=== PATIENT | male | born 1955 | race Caucasian/White ===

== ENCOUNTER 2020-02-13 13:10 | Emergency (ER) | payer OTHER ==
[~2020-02-13] VITALS: Ht 175.3 cm; Wt 94.8 kg
[2020-02-13 13:44] LABS: BASOPHILS ABSOLUTE AUTO 0.06 K/mm3 (0.00-0.23); BASOPHILS PERCENT AUTO 1 % (0-2); EOSINOPHILS PERCENT AUTO 4 % (0-6); Hematocrit 41.7 % (37.0-53.0); IMMATURE GRAN ABSOLUTE AUTO 0.02 K/mm3 (0.00-0.10); IMMATURE GRAN PERCENT AUTO 0 % (0-1); LYMPHOCYTES ABSOLUTE AUTO 0.96 K/mm3 (0.84-5.20); LYMPHOCYTES PERCENT AUTO 18 % (21-46); MONOCYTES ABSOLUTE AUTO 0.58 K/mm3 (0.16-1.47); MONOCYTES PERCENT AUTO 11 % (4-13); Mean Corpuscular Volume 97 fL (80-100); Mean Platelet Volume 10.7 fL (9.1-12.4); NEUTROPHILS ABSOLUTE AUTO 3.67 K/mm3 (1.96-9.15); NEUTROPHILS PERCENT AUTO 67 % (41-73); Platelet Count 154 K/mm3 (150-400); RDW Coefficient Variation 12.5 % (11.7-14.2); Red Blood Cell Count 4.28 M/mm3 (4.30-5.90); White Blood Cell Count 5.49 K/mm3 (4.00-11.30)
[2020-02-13 14:01] LABS: Alanine Aminotransfer (ALT/SGP 73 U/L (12-78); Albumin, Blood 2.9 g/dL (3.4-5.0); Albumin/Globulin Ratio 0.6 (0.8-1.8); Alk Phos 195 U/L (50-136); Anion Gap 9 mmol/L (6-16); Aspartate Aminotrans (AST/SGOT 133 U/L (12-37); Bilirubin, Total 1.8 mg/dL (0.1-1.0); Blood Urea Nitrogen 6 mg/dL (8-24); Bun/Creatinine Ratio 10.5 (12.0-20.0); CO2, Blood 24 mmol/L (21-32); Calcium, Blood 8.4 mg/dL (8.5-10.1); Chloride, Blood 105 mmol/L (98-108); Creatinine, Blood 0.57 mg/dL (0.60-1.20); Ethanol (Alcohol), Blood, Med 34 mg/dL; Globulin, Blood 4.9 g/dL (2.2-4.0); Glomerular Filtration Rate >60 (60-); Glucose, Blood 169 mg/dL (70-99); Potassium, Blood 3.6 mmol/L (3.5-5.5); Sodium, Blood 138 mmol/L (136-145); Total Protein, Blood 7.8 g/dL (6.4-8.2)
[2020-02-13] MEDS ORDERED: ACET500 PO (14:32)
[2020-02-13] MEDS ORDERED: IBUP800 PO (14:33)
[2020-02-13] MEDS ORDERED: CHLO25 PO (15:13)
== END 2020-02-13 15:27 | disposition home or self-care (01) ==
LOC: ER 13:10
PROVIDERS: Emergency Medicine
DX: F10.239 Alcohol dependence with withdrawal, unspecified (principal); M54.2 Cervicalgia; Z87.81 Personal history of (healed) traumatic fracture; I10 Essential (primary) hypertension; F17.220 Nicotine dependence, chewing tobacco, uncomplicated; W01.10XA Fall on same level from slipping, tripping and stumbling with subsequent striking against unspecified object, initial encounter
CPT/HCPCS: 72125; 80053; 83690; 85025; 96374; 99284-25; G0480; J2060

== ENCOUNTER 2021-05-04 12:06 | Inpatient (IN) | payer OTHER ==
[~2021-05-04] VITALS: Ht 175.3 cm; Wt 87.1 kg
[~2021-05-04 12:06] MED LIST: ACET500 PO; AMLO10 PO; B-1100 M1 PO; CHLO25 PO; CLON.1 PO; FAMO20 PO; GABA600 PO; IBUP800 PO; METO25ER PO; Nicoderm Cq1 EAC1 TOP; Seroquel Xr50 MG
[2021-05-04 12:39] LABS: BASOPHILS ABSOLUTE AUTO 0.03 K/mm3 (0.00-0.23); BASOPHILS PERCENT AUTO 0 % (0-2); EOSINOPHILS ABSOLUTE AUTO 0.07 K/mm3 (0.00-0.68); EOSINOPHILS PERCENT AUTO 1 % (0-6); Hematocrit 34.9 % (37.0-53.0); Hemoglobin 11.5 g/dL (13.5-17.5); IMMATURE GRAN ABSOLUTE AUTO 0.03 K/mm3 (0.00-0.10); IMMATURE GRAN PERCENT AUTO 0 % (0-1); LYMPHOCYTES ABSOLUTE AUTO 0.71 K/mm3 (0.84-5.20); LYMPHOCYTES PERCENT AUTO 9 % (21-46); MONOCYTES ABSOLUTE AUTO 0.87 K/mm3 (0.16-1.47); MONOCYTES PERCENT AUTO 11 % (4-13); Mean Corpuscular HGB 29.1 pg (26.0-34.0); Mean Corpuscular Volume 88 fL (80-100); Mean Platelet Volume 11.1 fL (9.1-12.4); NEUTROPHILS ABSOLUTE AUTO 6.16 K/mm3 (1.96-9.15); NEUTROPHILS PERCENT AUTO 78 % (41-73); Platelet Count 131 K/mm3 (150-400); RDW Coefficient Variation 12.6 % (11.7-14.2); RDW Standard Deviation 40.7 fL (35.1-46.3); Red Blood Cell Count 3.95 M/mm3 (4.30-5.90); White Blood Cell Count 7.87 K/mm3 (4.00-11.30)
[2021-05-04 12:48] LABS: Alanine Aminotransfer (ALT/SGP 26 U/L (12-78); Albumin, Blood 2.5 g/dL (3.4-5.0); Albumin/Globulin Ratio 0.6 (0.8-1.8); Alk Phos 133 U/L (50-136); Anion Gap 19 mmol/L (6-16); Aspartate Aminotrans (AST/SGOT 33 U/L (12-37); Bilirubin, Total 1.4 mg/dL (0.1-1.0); Blood Urea Nitrogen 90 mg/dL (8-24); Bun/Creatinine Ratio 13.6 (12.0-20.0); CO2, Blood 15 mmol/L (21-32); Calcium, Blood 8.7 mg/dL (8.5-10.1); Chloride, Blood 99 mmol/L (98-108); Creatinine, Blood 6.64 mg/dL (0.60-1.20); Globulin, Blood 4.5 g/dL (2.2-4.0); Glomerular Filtration Rate 8 (60-); Glucose, Blood 84 mg/dL (70-99); Potassium, Blood 3.8 mmol/L (3.5-5.5); Sodium, Blood 133 mmol/L (136-145); Troponin I <0.015 ng/mL (0.000-0.040)
[2021-05-04 15:16] LABS: Percent Saturation 7.3 % (20.0-50.0)
[2021-05-05 05:24] LABS: BASOPHILS ABSOLUTE AUTO 0.02 K/mm3 (0.00-0.23); BASOPHILS PERCENT AUTO 0 % (0-2); EOSINOPHILS ABSOLUTE AUTO 0.09 K/mm3 (0.00-0.68); EOSINOPHILS PERCENT AUTO 2 % (0-6); Hematocrit 32.1 % (37.0-53.0); Hemoglobin 11.1 g/dL (13.5-17.5); IMMATURE GRAN ABSOLUTE AUTO 0.01 K/mm3 (0.00-0.10); IMMATURE GRAN PERCENT AUTO 0 % (0-1); LYMPHOCYTES ABSOLUTE AUTO 0.78 K/mm3 (0.84-5.20); LYMPHOCYTES PERCENT AUTO 13 % (21-46); MONOCYTES PERCENT AUTO 12 % (4-13); Mean Corpuscular HGB 29.4 pg (26.0-34.0); Mean Corpuscular HGB Conc 34.6 g/dL (31.5-36.5); Mean Corpuscular Volume 85 fL (80-100); Mean Platelet Volume 10.6 fL (9.1-12.4); NEUTROPHILS ABSOLUTE AUTO 4.23 K/mm3 (1.96-9.15); NEUTROPHILS PERCENT AUTO 73 % (41-73); Platelet Count 95 K/mm3 (150-400); RDW Coefficient Variation 12.6 % (11.7-14.2); RDW Standard Deviation 38.6 fL (35.1-46.3); Red Blood Cell Count 3.77 M/mm3 (4.30-5.90); White Blood Cell Count 5.83 K/mm3 (4.00-11.30)
[2021-05-05 05:40] LABS: International Normalized Ratio 1.18; Prothrombin Time Results 12.3 Sec (9.7-11.5)
[2021-05-05 06:38] LABS: Albumin, Blood 2.3 g/dL (3.4-5.0); Albumin/Globulin Ratio 0.6 (0.8-1.8); Bilirubin, Total 1.2 mg/dL (0.1-1.0); Bun/Creatinine Ratio 18.4 (12.0-20.0); Calcium, Blood 8.3 mg/dL (8.5-10.1); Creatinine, Blood 4.83 mg/dL (0.60-1.20); Potassium, Blood 3.2 mmol/L (3.5-5.5); Total Protein, Blood 6.3 g/dL (6.4-8.2)
--- NOTE | 2021-05-05 07:00 | NUR ---
PAULETTE WAS ASSESSED UPON HIS ARRIVAL ON THE FLOOR, HE STATED THAT HE "DID'NT WANT TO STAY" . HE TOOK HIS MEDS, WAS COOPERATIVE, DENIED TAKING SOME OF THE MEDICATIONS ON HIS HOME MED LIST. HE SLEPT THROUGHOUT THE NIGHT.
--- NOTE | 2021-05-05 07:14 | NUR ---
ASSUMED CARE OF PT- BEDSIDE REPORT COMPLETED WITH NIGHT RN. PTIN BED SLEEPING SONOROUSLY. LUNG SOUNDS CLEAR IN THE BASES UPPER LOBES SOUND A LITTLE WHEEZY, POSSIBLY R/T SNORING. ALVAREZ CATH IN PLACE PATENT AND DRAINING. PLACED CLAMP TO COLLECT UA THAT IS ORDERED. WILL COLLECT ONCE URINE ACCUMULATES. PT APPEARS TO BE COMFORTABLE AT THIS TIME. SMALL SCRAPE OR LACERATION ABOVE THE RIGHT EYE. PER REPORT THIS IS RELATED TO THE PT MORE RECENT FALL AT HOME. APPARENTLY THE PT HAS HAD FREQUENT FALLS AT HOME AND HAS BRUISES T/O. WILL CTM AND COLLECT UA WHEN APPROPRIATE.
[2021-05-05 09:39] LABS: Source, Urine Catheter
[2021-05-05 09:42] LABS: Appearance, Urine Hazy (Clear); Bilirubin, Urine Neg (Neg); Blood, Urine 5+ (Neg); Color, Urine Yellow (P-Yellow); Glucose Qualitative, Urine Neg (Neg); Ketones, Urine Neg (Neg); Leukocyte Esterase, Urine Neg (Neg); Nitrite, Urine Neg (Neg); Protein, Urine 2+ (Neg); Specific Gravity, Urine 1.015 (1.003-1.022); Urobilinogen, Urine NORM (Normal)
[2021-05-05 10:00] LABS: Amorphous Light (0-Heavy); Bacteria Few /hpf; Mucus Light (0-Heavy); Squamous Epithelial Cells Few /hpf (Few); White Blood Cells, Urine Not Seen /hpf (0-5)
--- NOTE | 2021-05-05 17:13 | NUR ---
Pt fatigued and aggitated. Daughter at bedside to discuss his care. She is tearfull and exhauted and repetative. We reviewed his protential trajectory of care needs again we also reviewed a [facility] Copy in [place] and on chart. copy given to daughter. after review completed polst that stated no CPR litied treatment no ventilator. Would go to ICU for medications, will accept airvo and bipap. Pt stated his s agreement but was tentative and overwhelmed. Suggested they talk more befor we make and changes. Daughters hope [facility] They understand watch and wait and see if kidneys recover.
--- NOTE | 2021-05-05 17:30 | NUR ---
SHIFT SUMMARY- SPOKE TO SPEECH THERAPY ABOUT PT SMALL OCCASSIONAL COUGH. CONCERN FOR A POSSIBLE SWALLOW ISSUE, SPOKE TO DR RANDOLPH AND RECIEVED A SPEECH THERAPY SWALLOW EVAL ORDER. THE COUGH WAS FAR MORE EVIDENT WHEN THE PT WAS USING A LARGER CUP WITH A BIGGER STRAW. SWITCHED TO A SMALLER CUP WITH A SMALLER STRAW, ENCOURAGED PT TO TAKE SMALL SIPS. PLACED MEDS IN APPLESAUCE ONE AT A TIME THIS EVENING AND PT SWALLOWED THEM WELL. STAFF WERE ABLE TO GET THE PT INTO THE SHOWER THIS AFTERNOON AND WASHED HIS HAIR. PT HAS A ALVAREZ CATH THAT WAS PLACED IN THE ED FOR RETENTION. PER REPORT FROM NIGHT RN 3300 OUT WHEN IT WAS PLACED. PT HAS HAD A HIGH OUTPUT, GREATER THAN 2L THIS SHIFT. VITALS REMAIN STABLE. NEW IV PLACED IN THE RIGHT FORE ARM THE OTHER KEPT OCCLUDING WITH THE CONTINUIOUS INFUSION OF THE THIAMINE IV FLUIDS. UA COLLECTED AND SENT TO THE LAB EARLY IN THE SHIFT. DR RANDOLPH AND PALLIATIVE CARE RN BRANDEN MURPHY SPOKE TO THE PT DAUGHTER RAYMOND AT LENGTH TODAY. RAYMOND WAS ASKED TO UPDATE THE REST OF THE PT FAMILY AFTER SHE SPOKE TO THE DOCTOR, SHE HAD THE DOCTOR REPEAT IT ALL FOR THE SISTER GITA. BOTH ARE UP TO DATE ON THE PT MEDICAL CONDITION IT IS NOW. PT IS CURRENTLY SITTING UP IN BED, CALL LIGHT IN REACH, NO S&S OF DITRESS NOTED AT THIS TIME WILL CTM AND PASS ON TO NIGHT RN IN BEDSIDE REPORT.
--- NOTE | 2021-05-06 04:15 | NUR ---
SHIFT SUMMARY AOX2-SELF, HOSPITAL, FOLLOWING DIRECTIONS. UNAWARE DATE STATES 2015 & 2025 WHEN ASKED. UNAWARE TOWN STATES [place]. PT SLIGHTLY FORGETFUL & CONFUSED. PLEASENT & COOPERATIVE. VSS. TELE NSR. REPORTS CHRONIC 9/10 PAIN IN NECK & BACK, MEDICATED 1X c TYLENOL & PT RESTED WELL T/O NIGHT. DENIES N/V OR SOB. HAS OCC NONPRODUCTIVE COUGH, SPEECH EVAL PLANNED FOR TODAY. MULT ABRASIONS, SCRAPES & BRUSING T/O BODY. +3 PITTING EDEMA BLE, ELEVATED ON PILLOWS. ALVAREZ PATENT & DRAINING. CALL LIGHT & BED ALARM IN PLACE. [facility] DAY NURSE ASSUMES CARE.
[2021-05-06 05:32] LABS: BASOPHILS PERCENT AUTO 0 % (0-2); EOSINOPHILS PERCENT AUTO 0 % (0-6); Hematocrit 31.1 % (37.0-53.0); Hemoglobin 10.7 g/dL (13.5-17.5); IMMATURE GRAN PERCENT AUTO 0 % (0-1); LYMPHOCYTES ABSOLUTE AUTO 0.28 K/mm3 (0.84-5.20); LYMPHOCYTES PERCENT AUTO 10 % (21-46); MONOCYTES ABSOLUTE AUTO 0.18 K/mm3 (0.16-1.47); MONOCYTES PERCENT AUTO 6 % (4-13); Mean Corpuscular HGB 29.4 pg (26.0-34.0); Mean Corpuscular HGB Conc 34.4 g/dL (31.5-36.5); Mean Corpuscular Volume 85 fL (80-100); Mean Platelet Volume 11.6 fL (9.1-12.4); NEUTROPHILS ABSOLUTE AUTO 2.35 K/mm3 (1.96-9.15); NEUTROPHILS PERCENT AUTO 84 % (41-73); Platelet Count 88 K/mm3 (150-400); RDW Coefficient Variation 12.5 % (11.7-14.2); RDW Standard Deviation 38.9 fL (35.1-46.3); Red Blood Cell Count 3.64 M/mm3 (4.30-5.90); White Blood Cell Count 2.81 K/mm3 (4.00-11.30)
[2021-05-06 06:03] LABS: Albumin/Globulin Ratio 0.5 (0.8-1.8); Bilirubin, Total 0.7 mg/dL (0.1-1.0); Bun/Creatinine Ratio 31.9 (12.0-20.0); C-REACTIVE PROTEIN, EXT RANGE 5.73 mg/dL (0.000-0.300); Calcium, Blood 8.2 mg/dL (8.5-10.1); Creatinine, Blood 2.16 mg/dL (0.60-1.20); Globulin, Blood 4.3 g/dL (2.2-4.0); Magnesium, Blood 1.7 mg/dL (1.6-2.4); Potassium, Blood 3.4 mmol/L (3.5-5.5); Thyroid Stimulating Hormone 1.01 uIU/mL (0.360-4.800); Total Protein, Blood 6.3 g/dL (6.4-8.2)
[2021-05-06 06:08] LABS: Phosphorus, Blood 2.5 mg/dL (2.5-4.9)
--- NOTE | 2021-05-06 09:26 | NUR ---
PT TO IMAGING AND BACK VIA BED, TOLERATED WELL
--- NOTE | 2021-05-06 11:35 | NUR ---
This creative writer present at the bedside for interview with [employer] for assistance with caregivers. Rian is alone in his room. He gave verbal permission for this creative writer to be present. This creative writer spoke with Lakeshia, pt's dtr, earlier today who is unable to be here for the interview due to illness. aKyla from [facility] conducted this phone interview. Rian has questions re: the estate claims portion. Phone numbers written down for Rian to contact the Estates Administration Unit (EAU) to ask questions to determine if he is willing to agree to move forward or to withdraw his application for assistance. Kayla states a brochure and contact information for the EAU will also be mailed out to his [address] address. Contact numbers for EAU are: [phone] or . Per Kayla, the next steps for this application process are: 1) Assest verification (which Kayla will start today) 2) EAU brochure to be mailed to pt's mailing address (Kayla will do today) 3) Rian and family to contact EAU to find out the answers to their questions. 4) Once EAU has been contacted by pt/family and a decision has been made to proceed with application or to withdraw the application, pt or family will need to contact Joanna Castellanos at [facility] (pt's CM) [phone] option 8 to let Joanna know what their decision is. Rian gave permission for this creative writer to update his dtr, Lakeshia, re: today's phone call with Kayla. Called Lakeshia who is sick this morning and she requested that this creative writer call back later this afternoon to update her. Bedside nursing updated.
--- NOTE | 2021-05-06 18:34 | NUR ---
PT A/O X2, MILDLY CONFUSED AND FORGETFUL, BUT PLEASANT AND COOPERATIVE WITH CARE. SPEECH EVAL DONE TODAY, MEDS TO BE GIVEN IN APPLESAUCE AND LIQUIDS TO BE HONEY THICK. ALVAREZ FOR RETENTION IN PLACE, PATENT AND DRAINING. TO IMAGING FOR MRI THIS AM, TOLERATED WELL. NO ACUTE CHANGES NOTED THIS SHIFT, WILL CONTINUE TO MONITOR AND REPORT TO ONCOMING RN
[2021-05-07 04:50] LABS: BASOPHILS PERCENT AUTO 0 % (0-2); EOSINOPHILS PERCENT AUTO 0 % (0-6); Hematocrit 30.9 % (37.0-53.0); Hemoglobin 10.5 g/dL (13.5-17.5); IMMATURE GRAN ABSOLUTE AUTO 0.02 K/mm3 (0.00-0.10); IMMATURE GRAN PERCENT AUTO 1 % (0-1); LYMPHOCYTES ABSOLUTE AUTO 0.58 K/mm3 (0.84-5.20); LYMPHOCYTES PERCENT AUTO 14 % (21-46); MONOCYTES ABSOLUTE AUTO 0.41 K/mm3 (0.16-1.47); MONOCYTES PERCENT AUTO 10 % (4-13); Mean Corpuscular HGB 29.2 pg (26.0-34.0); Mean Corpuscular Volume 86 fL (80-100); Mean Platelet Volume 11.3 fL (9.1-12.4); NEUTROPHILS ABSOLUTE AUTO 3.08 K/mm3 (1.96-9.15); NEUTROPHILS PERCENT AUTO 75 % (41-73); Platelet Count 89 K/mm3 (150-400); RDW Coefficient Variation 12.7 % (11.7-14.2); RDW Standard Deviation 39.9 fL (35.1-46.3); White Blood Cell Count 4.09 K/mm3 (4.00-11.30)
[2021-05-07 05:07] LABS: Albumin, Blood 1.9 g/dL (3.4-5.0); Albumin/Globulin Ratio 0.4 (0.8-1.8); Bilirubin, Total 0.5 mg/dL (0.1-1.0); Bun/Creatinine Ratio 35.9 (12.0-20.0); Calcium, Blood 8.1 mg/dL (8.5-10.1); Creatinine, Blood 1.28 mg/dL (0.60-1.20); Globulin, Blood 4.3 g/dL (2.2-4.0); Magnesium, Blood 1.4 mg/dL (1.6-2.4); Phosphorus, Blood 1.7 mg/dL (2.5-4.9); Potassium, Blood 3.4 mmol/L (3.5-5.5); Total Protein, Blood 6.2 g/dL (6.4-8.2)
--- NOTE | 2021-05-07 05:14 | NUR ---
PAULETTE HAD UNENVENTFUL NIGHT, HR DID COMPLAINED OF HEADACHE AND NECK PAIN FOR THAT APPEARED TO HAVE BEEN RELIEVED WITH TYLENOL PER EMAR. HE STILL TAKES HIS MEDS IN APPLESAUCE. HE IS ALERT AND ORIENTED OCCASIONAL FORGETFULNESS. MORNING SYSTOLIC BP WAS HIGH (167). CONTINUE TO MONITOR
--- NOTE | 2021-05-07 18:31 | NUR ---
PT IS SLOWING GAINING STRENGTH, ABLE TO STAND AND SUPPORT HIS WEIGHT WITH ASSISTANCE, PLEASANT AND COOPERATIVE WITH CARE. NO ACUTE CHANGES NOTED THIS SHIFT, WILL CONTINUE TO MONITOR AND REPORT TO ONCOMING RN,
--- NOTE | 2021-05-08 04:02 | NUR ---
PAULETTE'S VITALS REMAINED STABLE OVERNIGHT. HE SPILLED WATER ON HIMSELF WHILE TRYING TO DRINK SOME WATER APPARENTLY. hE REMOVED HIS GOWN AND IN DOING SO HE ACCIDENTALLY PULLED OUT HIS LEFT AC PIV. HIS FLUID WERE SWITHCED TO THE RIGHT FOREARM PIV.
[2021-05-08 05:44] LABS: BASOPHILS PERCENT AUTO 0 % (0-2); EOSINOPHILS PERCENT AUTO 0 % (0-6); Hematocrit 31.9 % (37.0-53.0); Hemoglobin 10.7 g/dL (13.5-17.5); IMMATURE GRAN ABSOLUTE AUTO 0.02 K/mm3 (0.00-0.10); IMMATURE GRAN PERCENT AUTO 0 % (0-1); LYMPHOCYTES ABSOLUTE AUTO 0.77 K/mm3 (0.84-5.20); LYMPHOCYTES PERCENT AUTO 17 % (21-46); MONOCYTES ABSOLUTE AUTO 0.48 K/mm3 (0.16-1.47); MONOCYTES PERCENT AUTO 10 % (4-13); Mean Corpuscular HGB 29.2 pg (26.0-34.0); Mean Corpuscular HGB Conc 33.5 g/dL (31.5-36.5); Mean Corpuscular Volume 87 fL (80-100); Mean Platelet Volume 11.6 fL (9.1-12.4); NEUTROPHILS PERCENT AUTO 73 % (41-73); Platelet Count 100 K/mm3 (150-400); RDW Coefficient Variation 12.9 % (11.7-14.2); RDW Standard Deviation 40.8 fL (35.1-46.3); Red Blood Cell Count 3.66 M/mm3 (4.30-5.90); White Blood Cell Count 4.67 K/mm3 (4.00-11.30)
[2021-05-08 06:09] LABS: Anion Gap 8 mmol/L (6-16); Blood Urea Nitrogen 31 mg/dL (8-24); Bun/Creatinine Ratio 32.4 (12.0-20.0); CO2, Blood 23 mmol/L (21-32); Calcium, Blood 7.8 mg/dL (8.5-10.1); Chloride, Blood 110 mmol/L (98-108); Creatinine, Blood 0.96 mg/dL (0.60-1.20); Glomerular Filtration Rate >60 (60-); Glucose, Blood 155 mg/dL (70-99); Magnesium, Blood 1.3 mg/dL (1.6-2.4); Phosphorus, Blood 1.8 mg/dL (2.5-4.9); Potassium, Blood 3.4 mmol/L (3.5-5.5); Sodium, Blood 141 mmol/L (136-145)
--- NOTE | 2021-05-08 17:20 | NUR ---
SHIFT SUMMARY PATIENT ALERT, ORIENTED X2 THIS SHIFT. PATIENT IS CALM AND COOPERATIVE WITH CARE. VSS THIS SHIFT. PATIENT REMAINS ON ROOM AIR. PATIENT CONTINUES TO RECEIVE IV FLUIDS. PATIENT UP TO BSC ONCE THIS AFTERNOON. ALVAREZ REMOVED AROUND MID SHIFT. PATIENT YET TO VOID. PATIENT CURRENTLY SITTING UP IN BED WATCHING TELEVISION.
[2021-05-09 04:54] LABS: BASOPHILS PERCENT AUTO 0 % (0-2); EOSINOPHILS ABSOLUTE AUTO 0.01 K/mm3 (0.00-0.68); EOSINOPHILS PERCENT AUTO 0 % (0-6); Hematocrit 31.7 % (37.0-53.0); Hemoglobin 10.5 g/dL (13.5-17.5); IMMATURE GRAN ABSOLUTE AUTO 0.01 K/mm3 (0.00-0.10); IMMATURE GRAN PERCENT AUTO 0 % (0-1); LYMPHOCYTES ABSOLUTE AUTO 0.87 K/mm3 (0.84-5.20); LYMPHOCYTES PERCENT AUTO 17 % (21-46); MONOCYTES PERCENT AUTO 10 % (4-13); Mean Corpuscular HGB 29.3 pg (26.0-34.0); Mean Corpuscular HGB Conc 33.1 g/dL (31.5-36.5); Mean Corpuscular Volume 89 fL (80-100); Mean Platelet Volume 11.1 fL (9.1-12.4); NEUTROPHILS ABSOLUTE AUTO 3.68 K/mm3 (1.96-9.15); NEUTROPHILS PERCENT AUTO 73 % (41-73); Platelet Count 99 K/mm3 (150-400); RDW Coefficient Variation 13.2 % (11.7-14.2); Red Blood Cell Count 3.58 M/mm3 (4.30-5.90); White Blood Cell Count 5.07 K/mm3 (4.00-11.30)
[2021-05-09 05:12] LABS: Alanine Aminotransfer (ALT/SGP 106 U/L (12-78); Albumin, Blood 1.8 g/dL (3.4-5.0); Albumin/Globulin Ratio 0.5 (0.8-1.8); Alk Phos 164 U/L (50-136); Anion Gap 6 mmol/L (6-16); Aspartate Aminotrans (AST/SGOT 100 U/L (12-37); Bilirubin, Total 0.4 mg/dL (0.1-1.0); Blood Urea Nitrogen 25 mg/dL (8-24); Bun/Creatinine Ratio 25.4 (12.0-20.0); CO2, Blood 23 mmol/L (21-32); Calcium, Blood 7.7 mg/dL (8.5-10.1); Chloride, Blood 114 mmol/L (98-108); Creatinine, Blood 0.98 mg/dL (0.60-1.20); Globulin, Blood 3.9 g/dL (2.2-4.0); Glomerular Filtration Rate >60 (60-); Glucose, Blood 222 mg/dL (70-99); Magnesium, Blood 1.4 mg/dL (1.6-2.4); Phosphorus, Blood 1.8 mg/dL (2.5-4.9); Potassium, Blood 3.7 mmol/L (3.5-5.5); Sodium, Blood 143 mmol/L (136-145); Total Protein, Blood 5.7 g/dL (6.4-8.2)
--- NOTE | 2021-05-09 06:16 | NUR ---
PAULETTE REMAINED STABLE THROUGHOUT THE PSYCHIATRIC REGISTERED NURSE. HIS BLOOD SUGAR WAS WNL AND K+ LEVEL FROM YESTERDAY MORNING LAB IS TRENDING DOWN.
--- NOTE | 2021-05-09 06:30 | NUR ---
PAULETTE WAS PHYSIOLOGICALLY STABLE THROUGHOUT THE NIGHT, SPOKE TO HIS DAUGHTER WHO REPORTED PERIODS OF CONFUSION SURING THE CONVERSATION. THE DAUGHTER ORDERED HIM PIZZA WHICH HE ATE WITH ENJOYMENT. THE DAUGHTER PLANS TO TALK TO THE DAOCTOR ABOUT HIS EMAR TODAY
--- NOTE | 2021-05-09 19:24 | NUR ---
Alert and oriented x1 , huston cath in place draining clear yellow urine. BP was elevated , hydralazine 10 mg iv was given and please recheck. Had shower today. continue to monitor.
--- NOTE | 2021-05-10 04:42 | NUR ---
SHIFT SUMMARY PT UP IN RECLINER FOR FIRST HALF OF SHIFT, DECLINING TO GET IN TO THE BED UNTIL LATER IN THE NIGHT. PT TRANSFERED TO BED WITH 2 PERSON ASSIST AND FWW. SLOW MOVING, EXTREMETIES STIFF. SCATTERED BRUISING AND ABRASION TO FOREHEAD NOTED. PT COMPLAINED OF HEADACHE THIS EVENING. TYLENOL GIVEN WITH GOOD EFFECT. ALVAREZ CATHETER PATENT AND DRAINING. EDEMA 1-2+ TO BLE'S. VITAL SIGNS STABLE. NO ACUTE CHANGES THIS EVENING.
[2021-05-10 04:45] LABS: BASOPHILS PERCENT AUTO 0 % (0-2); EOSINOPHILS ABSOLUTE AUTO 0.03 K/mm3 (0.00-0.68); EOSINOPHILS PERCENT AUTO 1 % (0-6); Hematocrit 33.1 % (37.0-53.0); Hemoglobin 10.8 g/dL (13.5-17.5); IMMATURE GRAN ABSOLUTE AUTO 0.04 K/mm3 (0.00-0.10); IMMATURE GRAN PERCENT AUTO 1 % (0-1); LYMPHOCYTES ABSOLUTE AUTO 0.96 K/mm3 (0.84-5.20); LYMPHOCYTES PERCENT AUTO 17 % (21-46); MONOCYTES ABSOLUTE AUTO 0.58 K/mm3 (0.16-1.47); MONOCYTES PERCENT AUTO 10 % (4-13); Mean Corpuscular HGB 29.2 pg (26.0-34.0); Mean Corpuscular HGB Conc 32.6 g/dL (31.5-36.5); Mean Corpuscular Volume 90 fL (80-100); Mean Platelet Volume 11.3 fL (9.1-12.4); NEUTROPHILS PERCENT AUTO 72 % (41-73); Platelet Count 101 K/mm3 (150-400); RDW Coefficient Variation 13.2 % (11.7-14.2); RDW Standard Deviation 43.8 fL (35.1-46.3); White Blood Cell Count 5.71 K/mm3 (4.00-11.30)
[2021-05-10 05:41] LABS: Alanine Aminotransfer (ALT/SGP 122 U/L (12-78); Albumin, Blood 1.9 g/dL (3.4-5.0); Albumin/Globulin Ratio 0.5 (0.8-1.8); Alk Phos 192 U/L (50-136); Anion Gap 7 mmol/L (6-16); Aspartate Aminotrans (AST/SGOT 86 U/L (12-37); Bilirubin, Total 0.5 mg/dL (0.1-1.0); Blood Urea Nitrogen 24 mg/dL (8-24); Bun/Creatinine Ratio 30.9 (12.0-20.0); CO2, Blood 24 mmol/L (21-32); Calcium, Blood 7.5 mg/dL (8.5-10.1); Chloride, Blood 111 mmol/L (98-108); Creatinine, Blood 0.78 mg/dL (0.60-1.20); Globulin, Blood 3.6 g/dL (2.2-4.0); Glomerular Filtration Rate >60 (60-); Glucose, Blood 183 mg/dL (70-99); Magnesium, Blood 1.4 mg/dL (1.6-2.4); Phosphorus, Blood 2.3 mg/dL (2.5-4.9); Potassium, Blood 3.6 mmol/L (3.5-5.5); Sodium, Blood 142 mmol/L (136-145); Total Protein, Blood 5.5 g/dL (6.4-8.2)
--- NOTE | 2021-05-10 17:59 | NUR ---
SHIFT SUMMARY. PATIENT IN BED EATING DINNER. SPENT MOST OF DAY UP IN CHAIR AFTER WORKING WITH PT. PATIENT ADVANCED TO REGULAR DIET WITH THIN LIQUIDS, NO STRAW. TOLERATING WELL AND SWALLOWING PILLS WHOLE WITH WATER. D/C'D ALVAREZ CATHETER AT 1040. PATIENT UNABLE TO VOID, BLADDER SCAN SHOWED 309ML. REINSERTED ALVAREZ CATHETER AT 1530. VITAL SIGNS STABLE. WILL CONTINUE TO MONITOR.
--- NOTE | 2021-05-11 04:20 | NUR ---
CURB WORKER SUMMARY PT HAD A FAIR SHIFT WITH NO COMPLAINTS OVERNIGHT. HE IS ON ALVAREZ THAT WAS REPLACED BY THE DAY SHIFT RN. WILL CONTINUE TO MONITOR PT.
[2021-05-11 04:49] LABS: BASOPHILS PERCENT AUTO 0 % (0-2); EOSINOPHILS ABSOLUTE AUTO 0.01 K/mm3 (0.00-0.68); EOSINOPHILS PERCENT AUTO 0 % (0-6); Hematocrit 36.6 % (37.0-53.0); IMMATURE GRAN ABSOLUTE AUTO 0.04 K/mm3 (0.00-0.10); IMMATURE GRAN PERCENT AUTO 0 % (0-1); LYMPHOCYTES ABSOLUTE AUTO 1.12 K/mm3 (0.84-5.20); LYMPHOCYTES PERCENT AUTO 11 % (21-46); MONOCYTES ABSOLUTE AUTO 0.86 K/mm3 (0.16-1.47); MONOCYTES PERCENT AUTO 9 % (4-13); Mean Corpuscular HGB 29.4 pg (26.0-34.0); Mean Corpuscular HGB Conc 32.8 g/dL (31.5-36.5); Mean Corpuscular Volume 90 fL (80-100); Mean Platelet Volume 11.5 fL (9.1-12.4); NEUTROPHILS ABSOLUTE AUTO 7.98 K/mm3 (1.96-9.15); NEUTROPHILS PERCENT AUTO 80 % (41-73); Platelet Count 115 K/mm3 (150-400); RDW Coefficient Variation 13.4 % (11.7-14.2); RDW Standard Deviation 44.3 fL (35.1-46.3); Red Blood Cell Count 4.08 M/mm3 (4.30-5.90); White Blood Cell Count 10.01 K/mm3 (4.00-11.30)
[2021-05-11 05:03] LABS: International Normalized Ratio 1.15
[2021-05-11 06:04] LABS: Alanine Aminotransfer (ALT/SGP 111 U/L (12-78); Albumin/Globulin Ratio 0.5 (0.8-1.8); Alk Phos 187 U/L (50-136); Anion Gap 9 mmol/L (6-16); Aspartate Aminotrans (AST/SGOT 55 U/L (12-37); Bilirubin, Total 0.5 mg/dL (0.1-1.0); Blood Urea Nitrogen 24 mg/dL (8-24); Bun/Creatinine Ratio 29.2 (12.0-20.0); CO2, Blood 23 mmol/L (21-32); Calcium, Blood 7.9 mg/dL (8.5-10.1); Chloride, Blood 109 mmol/L (98-108); Creatinine, Blood 0.82 mg/dL (0.60-1.20); Globulin, Blood 3.9 g/dL (2.2-4.0); Glomerular Filtration Rate >60 (60-); Glucose, Blood 173 mg/dL (70-99); Magnesium, Blood 1.5 mg/dL (1.6-2.4); Phosphorus, Blood 3.1 mg/dL (2.5-4.9); Potassium, Blood 3.4 mmol/L (3.5-5.5); Sodium, Blood 141 mmol/L (136-145); Total Protein, Blood 5.9 g/dL (6.4-8.2)
[2021-05-11] MEDS ORDERED: ALLO100 PO (08:55)
[2021-05-11] MEDS ORDERED: Acerola C500 MG PO (08:55)
[2021-05-11] MEDS ORDERED: CALCIUM CARBON500 M1 PO (08:57)
[2021-05-11] MEDS ORDERED: CATAPRES0.2 M1 PO (08:58)
[2021-05-11] MEDS ORDERED: FERSU300 PO (08:59)
[2021-05-11] MEDS ORDERED: HYDR10 PO (08:59)
[2021-05-11] MEDS ORDERED: MAGNESIUM OXID500 MG PO (09:00)
[2021-05-11] MEDS ORDERED: MELATONIN5 M1 PO (09:00)
[2021-05-11] MEDS ORDERED: Nicoderm Cq1 EAC1 TOP (09:01)
[2021-05-11] MEDS ORDERED: METO25ER PO (09:01)
[2021-05-11] MEDS ORDERED: ONDA4ODT MM (09:02)
[2021-05-11] MEDS ORDERED: K-Phos Origina500 MG PO (09:02)
[2021-05-11] MEDS ORDERED: PRED20 PO (09:02)
[2021-05-11] MEDS ORDERED: LACT PO (09:03)
[2021-05-11] MEDS ORDERED: Seroquel Xr50 MG PO (09:03)
--- NOTE | 2021-05-11 18:33 | NUR ---
SHIFT SUMMARY UP TO CHAIR THIS MORNING AND AGAIN THIS AFTERNOON. ENCOURAGED TO KEEP LE'S ELEVATED DUE TO EDEMA. FLAT AFFECT. DAUGHTER IN TO SEE PT THIS EVENING. POSSIBILITY OF TRANSFERRING TO [facility] TOMORROW FOR REHAB AND TO SEE A UROLOGIST.
[2021-05-12 05:29] LABS: Prostate Specific Antigen 0.478 ng/mL (0.000-4.000)
--- NOTE | 2021-05-12 06:44 | NUR ---
RECORDS MANAGEMENT ASSOCIATE SUMMARY PATIENT HAD A FAIR SHIFT, HE IS STILL HAVING DIARRHEA, GOT AN ORDER FOR IMMODIUM AND SAME WAS ADMINISTERED. NO OTHER COMPLAINTS LODGED. HIS VS WERE STABLE.
--- NOTE | 2021-05-12 18:23 | NUR ---
SHIFT SUMMARY PT UP TO CHAIR WITH P.T. TODAY AND HAS REMAINED IN CHAIR SINCE LUNCH. FEET ELEVATED WITH PILLOWS TO AID IN SWELLING. DAUGHTER AT BEDSIDE THIS EVENING. PT IS MORE VERBAL AND INTERACTIVE TODAY THAN YESTERDAY. REPORTS SOB IMPROVED FROM YESTERDAY WELL.
--- NOTE | 2021-05-13 07:12 | NUR ---
NAval with acute kidney injury alcoholic cirrhosis hep c coralue to have improvement. Up with 1 assist to chair or BSC. Denies acute unmet needs. HGas huston cath for urinary obstruction retention. able to communicate has plans to go to [facility] for continued recovery
--- NOTE | 2021-05-13 16:41 | NUR ---
DAY SHIFT SUMMARY PLEASANT 66 YR OLD MALE. ABLE TO AMBULATE USING WALKER WITH ONE ASSIST WITH GAIT BELT. ABLE TO AMBULATE AROUND WITH ROOM WITH FROZEN FOOD DEPARTMENT MANAGER PICKER AND PACKER, ABLE TO AMBULATE IN HALLWAY WITH PT. ALVAREZ PATENT AND DRAINING BY GRAVITY. PT INCONTINENT OF URINE AND AT TIMES ALSO BOWEL, OTHER TIMES ABLE TO MAKE IT TO BSC WITH ONE ASSIST WITH WALKER AND GAIT BELT. MEDS WHOLE IN PUDDING. CALL LIGHT WITHIN REACH OF PT.
--- NOTE | 2021-05-14 04:53 | NUR ---
PAULETTE HAD HIS MEDS IN APPLE SAUCE AFTER HIS DAUGHTER LEFT. HIS SBP WAS 177 SO HE WAS MEDICATED PER EMAR. HIS VITALS WERE STABLE THIS MORNING. HE SLEPT MOST OF THE NIGHT
[2021-05-14 05:22] LABS: BASOPHILS ABSOLUTE AUTO 0.01 K/mm3 (0.00-0.23); BASOPHILS PERCENT AUTO 0 % (0-2); EOSINOPHILS ABSOLUTE AUTO 0.02 K/mm3 (0.00-0.68); EOSINOPHILS PERCENT AUTO 0 % (0-6); Hematocrit 35.6 % (37.0-53.0); Hemoglobin 11.7 g/dL (13.5-17.5); IMMATURE GRAN ABSOLUTE AUTO 0.04 K/mm3 (0.00-0.10); IMMATURE GRAN PERCENT AUTO 1 % (0-1); LYMPHOCYTES ABSOLUTE AUTO 1.12 K/mm3 (0.84-5.20); LYMPHOCYTES PERCENT AUTO 13 % (21-46); MONOCYTES ABSOLUTE AUTO 0.96 K/mm3 (0.16-1.47); MONOCYTES PERCENT AUTO 11 % (4-13); Mean Corpuscular HGB 29.5 pg (26.0-34.0); Mean Corpuscular HGB Conc 32.9 g/dL (31.5-36.5); Mean Corpuscular Volume 90 fL (80-100); Mean Platelet Volume 11.5 fL (9.1-12.4); NEUTROPHILS PERCENT AUTO 75 % (41-73); Platelet Count 149 K/mm3 (150-400); RDW Coefficient Variation 13.7 % (11.7-14.2); RDW Standard Deviation 45.1 fL (35.1-46.3); Red Blood Cell Count 3.96 M/mm3 (4.30-5.90); White Blood Cell Count 8.65 K/mm3 (4.00-11.30)
[2021-05-14 06:34] LABS: Albumin, Blood 2.1 g/dL (3.4-5.0); Anion Gap 8 mmol/L (6-16); Blood Urea Nitrogen 27 mg/dL (8-24); Bun/Creatinine Ratio 35.2 (12.0-20.0); CO2, Blood 27 mmol/L (21-32); Calcium, Blood 8.3 mg/dL (8.5-10.1); Chloride, Blood 107 mmol/L (98-108); Creatinine, Blood 0.77 mg/dL (0.60-1.20); Glomerular Filtration Rate >60 (60-); Glucose, Blood 176 mg/dL (70-99); Magnesium, Blood 1.6 mg/dL (1.6-2.4); Phosphorus, Blood 3.4 mg/dL (2.5-4.9); Potassium, Blood 3.6 mmol/L (3.5-5.5); Sodium, Blood 142 mmol/L (136-145)
--- NOTE | 2021-05-14 16:50 | NUR ---
DAY SHIFT SUMMARY PLEASANT 66 YR OLD MALE. ALVAREZ PRESENT, PATENT, AND DRAINING BY GRAVITY. URINE ROMMEL IN COLOR. PT HAS BEEN WORKING WITH PT TO AMBULATE AROUND HALLWAY WITH A FRONT WHEEL WALKER AND GAIT BELT. DAUGHTER CAME TO VISIT AT BEDSIDE THIS AFTERNOON. PT'S SPIRITS SEEMED TO BE HIGHER TODAY VS YESTERDAY. CALL LIGHT WITHIN REACH OF PT.
--- NOTE | 2021-05-15 05:20 | NUR ---
PAULETTE REMAINED STABLE ALL NIGHT, WAS ADMINISTERED HIS MEDS, HAD A RESTFUL NIGHT OF SLEEP. STILL WAITING ON PLAN FOR TRANSFER TO [facility]
--- NOTE | 2021-05-15 18:09 | NUR ---
SHIFT SUMMARY PATIENT DENIES PAIN, NAUSEA, AND SHORTNESS OF BREATH. PATIENT IS A 1 PERSON ASSIST TO THE BEDSIDE COMMODE. ALVAREZ IS PATENT AND DRAINING TO GRAVITY. PATIENT LIKES TO HAVE HIS MEDICATIONS WHOLE IN PUDDING. PATIENT IS EATING AND DRINKING WELL. PATIENT IS PLEASANT AND COOPERATIVE WITH CARE.
--- NOTE | 2021-05-16 04:49 | NUR ---
PAULETTE'S CONDITION REMAINED STABLE LAST NIGHT. HE HAD A BM ON THE BED BEFORE ASKING RTO BE TRANSFERRED TO THE BEDSIDE COMMODE. HE WAS ATTENDED TO AND CLEANED THEN WENT BACK TO BED
--- NOTE | 2021-05-16 18:29 | NUR ---
SHIFT SUMMARY PATIENT DENIES PAIN, NAUSEA, AND SHORTNESS OF BREATH. PATIENT [place] 1 [place] [facility] [place] TRANSFERRED TO A SHOWER CHAIR AND TOOK A SHOWER TODAY. EDUCATED PATIENT ABOUT CATH CARE. PATIENT SOME TROUBLE WITH DEXTERITY IN HANDS. WILL CONTINUE TO WORK WITH HIM. PATIENT IS EATING AND DRINKING WELL. PATIENT IS PLEASANT AND COOPERATIVE WITH CARE.
--- NOTE | 2021-05-17 03:30 | NUR ---
SHIFT SUMMARY PAULETTE ADMITTED FOR ACUTE KIDNEY INJURY R/T RENAL FAILURE FROM OBSTRUCTION. ALVAREZ IN PLACE AND DRAINING TO GRAVITY. PT IS 1 PERSON SBA TO BSC. HX OF FALLING PRIOR TO ARRIVAL. IV IN RIGHT FOREARM, FLUSHES WELL. ROOM AIR. A&O X3-4. PLAN IS PLACEMENT IN SNF FOR REHAB OR POSSIBLE PT WITH HOME HEALTH, DAY SHIFT NURSES ARE WORKING WITH PT ON EDUCATION REGARDING CATHETER CARE. BED IN LOWEST POSITION, CALL LIGHT WITHIN REACH. VSS, NO ACUTE CHANGES.
[2021-05-17 04:55] LABS: Hematocrit 35.8 % (37.0-53.0); Hemoglobin 11.7 g/dL (13.5-17.5)
[2021-05-17 05:31] LABS: Anion Gap 10 mmol/L (6-16); Blood Urea Nitrogen 31 mg/dL (8-24); Bun/Creatinine Ratio 38.7 (12.0-20.0); CO2, Blood 31 mmol/L (21-32); Calcium, Blood 8.1 mg/dL (8.5-10.1); Chloride, Blood 101 mmol/L (98-108); Glomerular Filtration Rate >60 (60-); Glucose, Blood 246 mg/dL (70-99); Phosphorus, Blood 4.1 mg/dL (2.5-4.9); Potassium, Blood 3.2 mmol/L (3.5-5.5); Sodium, Blood 142 mmol/L (136-145)
--- NOTE | 2021-05-17 17:17 | NUR ---
SHIFT SUMMARY PATIENT DENIES PAIN, NAUSEA, AND SHORTNESS OF BREATH. PATIENT IS A 1 PERSON ASSIST TO THE CHAIR OR BSC. ALVAREZ IS PATENT AND DRAINING. PT WORKED WITH PATIENT TODAY. PATIENT DECLINED TO WORK WITH OT DUE TO BEING TIRED FROM PT. CATH CARE EDUCATION DONE WITH PATIENT. HE IS IMPROVING WITH HIS ABILITY TO PERFORM PROPER CARE. PATIENT IS EATING AND DRINKING WELL. UPDATED PATIENTS DAUGHTERS TODAY. PATIENT IS PLEASANT AND COOPERATIVE [facility] CARE.
--- NOTE | 2021-05-18 04:35 | NUR ---
PATIENT WAS ALERT AND ORIENTED X3, PAIN COMPLAINED ON PAIN IN HIS RIGHT LEG AND GIVEN PAIN MEDS. PATIENT IS BEDREST AND WAS IN ENCOURAGED TO USE A BED HAYS OR URINARY BUT PATIENT TRIED TO GET ASSISTS TO GET OUT OF BED TO USE THE REST ROOM OR BEDSIDE COMMODE. PATIENT DENIES SOB
--- NOTE | 2021-05-18 04:43 | NUR ---
PATIENT WAS ALERT AND ORIENTED X3, PT ON ROOM AIR, ALVAREZ IN PLACE. PT PREFERS TAKING MEDS WITH CHOCOLATE PUDDING. PT DENIES PAIN OR SOB. STABLE VITAL SIGNS, NO ACUTE CHANES.
[2021-05-18 06:04] LABS: Anion Gap 10 mmol/L (6-16); Blood Urea Nitrogen 30 mg/dL (8-24); Bun/Creatinine Ratio 37.1 (12.0-20.0); CO2, Blood 34 mmol/L (21-32); Chloride, Blood 97 mmol/L (98-108); Creatinine, Blood 0.81 mg/dL (0.60-1.20); Glomerular Filtration Rate >60 (60-); Glucose, Blood 231 mg/dL (70-99); Magnesium, Blood 1.5 mg/dL (1.6-2.4); Sodium, Blood 141 mmol/L (136-145)
[2021-05-18] MEDS ORDERED: POTA10T PO (11:56)
[2021-05-18] MEDS ORDERED: TAMS.4ER PO (11:57)
[2021-05-18] MEDS ORDERED: FURO40 PO (11:57)
[2021-05-18] MEDS ORDERED: SPIR50 PO (11:58)
[2021-05-18 12:38] LABS: Influenza A, PCR NEGATIVE (NEGATIVE); Influenza B, PCR NEGATIVE (NEGATIVE); Resp Syncytial Virus, PCR NEGATIVE (NEGATIVE); SARS-Cov-2 (COVID-19) PCR, MMC NEGATIVE (NEGATIVE)
--- NOTE | 2021-05-18 14:48 | NUR ---
DISCHARGE NOTE PT IV REMOVED BY THIS RN PER DOCUMENTATION. PAPERWORK SENT WITH [facility]IA TROUBLE LINEMAN. PT ALVAREZ CATHETER PRESENT UPON DC. PT IN HOSPITAL GOWN UPON DC AND BELONGINGS GATHERED FROM ROOM. PT ASSISTED INTO WHEELCHAIR BY THIS RN AND BREAKER BOSS. PT LEFT BUILDING VIA TRANSPORT.
== END 2021-05-18 14:31 | DRG 683 ==
LOC: ER 12:06 → MEDS 15:10 → ERHOLD 15:10 → MEDS 20:03
PROVIDERS: Emergency Medicine; Family Medicine; Internal Medicine; Nurse Practitioner Acute Care; ADMIT Hospitalist
DX: N17.9 Acute kidney failure, unspecified (principal); E87.2 Acidosis; N13.8 Other obstructive and reflux uropathy; F10.230 Alcohol dependence with withdrawal, uncomplicated; E46 Unspecified protein-calorie malnutrition; D61.818 Other pancytopenia; R29.6 Repeated falls; E87.5 Hyperkalemia; D69.6 Thrombocytopenia, unspecified; Z20.822 Contact with and (suspected) exposure to COVID-19; N40.1 Benign prostatic hyperplasia with lower urinary tract symptoms; M10.9 Gout, unspecified; K21.9 Gastro-esophageal reflux disease without esophagitis; E87.6 Hypokalemia; E83.42 Hypomagnesemia; G89.29 Other chronic pain; M54.2 Cervicalgia; K74.60 Unspecified cirrhosis of liver; I10 Essential (primary) hypertension; B18.2 Chronic viral hepatitis C; F17.220 Nicotine dependence, chewing tobacco, uncomplicated; Z85.038 Personal history of other malignant neoplasm of large intestine; Z90.49 Acquired absence of other specified parts of digestive tract; Z91.14 Patient's other noncompliance with medication regimen; Z68.29 Body mass index [BMI] 29.0-29.9, adult
CPT/HCPCS: 0241U; 36415; 51702; 70450; 71046; 76770; 80048; 80053; 80069; 81001; 82550; 82607; 82728; 82746; 83540; 83550; 83735; 83880; 84100; 84145; 84153; 84443; 84484; 84550; 85014; 85018; 85025; 85610; 86140; 87086; 92526; 92610; 93005; 93010; 93970; 94760; 96365; 96366; 97110; 97116; 97162; 97166; 97530; 97535; 99285-25; A9270; J0360; J1644; J1940; J3411; J3475; J7030; J7042; J7060; J7512

== ENCOUNTER → 2021-11-11 | Outpatient (CLI) | payer MEDICARE, OTHER ==
[~2021-11-11] MED LIST changes: +ALLO100 PO; +ASPERFLEX1 EACH TOP; +Acerola C500 MG PO; +BANATROL PLUS1 EAC1 PO; +CALCIUM CARBON500 M1 PO; +CATAPRES0.1 MG PO; +FERSU300 PO; +FURO40 PO; +HYDR10 PO; +K-Phos Origina500 MG PO; +LACT PO; +LIDO700A20 TOP; +LOPE2C PO; +MAGNESIUM OXID500 MG PO; +MELATONIN5 M1 PO; +METF500 PO; +ONDA4ODT MM; +POTA10T PO; +PRED20 PO; +SPIR50 PO; +Seroquel Xr50 MG PO; +TAMS.4ER PO; +TRAZ50 PO; +VISBIOME 112.51 EACH PO
[2021-11-11 21:20] LABS: Hematocrit 39.3 % (37.0-53.0); Hemoglobin 12.9 g/dL (13.5-17.5); Mean Corpuscular HGB 29.1 pg (26.0-34.0); Mean Corpuscular HGB Conc 32.8 g/dL (31.5-36.5); Mean Corpuscular Volume 89 fL (80-100); Mean Platelet Volume 10.8 fL (9.1-12.4); Platelet Count 190 K/mm3 (150-400); RDW Coefficient Variation 13.7 % (11.7-14.2); RDW Standard Deviation 44.2 fL (35.1-46.3); Red Blood Cell Count 4.44 M/mm3 (4.30-5.90); White Blood Cell Count 9.16 K/mm3 (4.00-11.30)
[2021-11-11 21:32] LABS: Bun/Creatinine Ratio 21.9 (12.0-20.0); Calcium, Blood 9.4 mg/dL (8.5-10.1); Creatinine, Blood 0.87 mg/dL (0.60-1.20); Potassium, Blood 3.8 mmol/L (3.5-5.5)
== END | disposition home or self-care (01) ==
LOC: EDSTATUS 15:40 → LAB UVN 21:10
PROVIDERS: Internal Medicine
DX: E11.9 Type 2 diabetes mellitus without complications (principal); D64.9 Anemia, unspecified
CPT/HCPCS: 80048; 83036; 85027

== ENCOUNTER → 2021-11-16 | Outpatient (CLI) | payer MEDICARE, OTHER | END | disposition home or self-care (01) | LOC: LAB UVN 06:18 | DX: E11.9 Type 2 diabetes mellitus without complications (principal); D64.9 Anemia, unspecified; D69.59 Other secondary thrombocytopenia; M10.9 Gout, unspecified ==

== ENCOUNTER 2021-11-19 14:51 | Inpatient (IN) | payer OTHER ==
[~2021-11-19] VITALS: Ht 175.3 cm; Wt 78.4 kg
[~2021-11-19 14:51] MED LIST changes: -ASPERFLEX1 EACH TOP; -BANATROL PLUS1 EAC1 PO; -LIDO700A20 TOP; -LOPE2C PO; -METF500 PO; -TRAZ50 PO; -VISBIOME 112.51 EACH PO
[2021-11-19] MEDS ORDERED: ASPERFLEX1 EACH TOP (15:10)
[2021-11-19] MEDS ORDERED: TRAZ50 PO (15:10)
[2021-11-19] MEDS ORDERED: METF500 PO (15:13)
[2021-11-19 15:43] LABS: BASOPHILS ABSOLUTE AUTO 0.05 K/mm3 (0.00-0.23); BASOPHILS PERCENT AUTO 0 % (0-2); EOSINOPHILS ABSOLUTE AUTO 0.01 K/mm3 (0.00-0.68); EOSINOPHILS PERCENT AUTO 0 % (0-6); Hematocrit 43.4 % (37.0-53.0); Hemoglobin 14.8 g/dL (13.5-17.5); IMMATURE GRAN ABSOLUTE AUTO 0.06 K/mm3 (0.00-0.10); IMMATURE GRAN PERCENT AUTO 0 % (0-1); LYMPHOCYTES ABSOLUTE AUTO 0.78 K/mm3 (0.84-5.20); LYMPHOCYTES PERCENT AUTO 4 % (21-46); MONOCYTES ABSOLUTE AUTO 1.07 K/mm3 (0.16-1.47); MONOCYTES PERCENT AUTO 6 % (4-13); Mean Corpuscular HGB 29.1 pg (26.0-34.0); Mean Corpuscular HGB Conc 34.1 g/dL (31.5-36.5); Mean Corpuscular Volume 85 fL (80-100); Mean Platelet Volume 10.1 fL (9.1-12.4); NEUTROPHILS ABSOLUTE AUTO 17.23 K/mm3 (1.96-9.15); NEUTROPHILS PERCENT AUTO 90 % (41-73); Platelet Count 314 K/mm3 (150-400); RDW Coefficient Variation 13.8 % (11.7-14.2); RDW Standard Deviation 43.4 fL (35.1-46.3); Red Blood Cell Count 5.08 M/mm3 (4.30-5.90)
[2021-11-19 16:04] LABS: Source, Urine Foley catheter
[2021-11-19 16:08] LABS: Bun/Creatinine Ratio 22.9 (12.0-20.0); Calcium, Blood 9.7 mg/dL (8.5-10.1); Creatinine, Blood 0.7 mg/dL (0.60-1.20); Magnesium, Blood 1.6 mg/dL (1.6-2.4); Potassium, Blood 3.8 mmol/L (3.5-5.5)
[2021-11-19 16:10] LABS: Appearance, Urine Cloudy (Clear); Bilirubin, Urine Neg (Neg); Blood, Urine 5+ (Neg); Color, Urine Yellow (P-Yellow); Glucose Qualitative, Urine 2+ (Neg); Ketones, Urine 1+ (Neg); Leukocyte Esterase, Urine 3+ (Neg); Nitrite, Urine Pos (Neg); Protein, Urine 4+ (Neg); Specific Gravity, Urine 1.025 (1.003-1.022); Urobilinogen, Urine NORM (Normal)
[2021-11-19 16:23] LABS: Renal Epithelial Few /hpf (0-Rare); White Blood Cells, Urine TNTC /hpf (0-5)
[2021-11-19 16:24] LABS: Bacteria Many /hpf; Red Blood Cells, Urine 25-50 /hpf (0-2); Squamous Epithelial Cells Rare /hpf (Few); Transitional Epithelial Cells Rare /hpf (0-Rare)
--- NOTE | 2021-11-19 20:00 | NUR ---
Admit: Arrived from ED. Pt had eyes closed, opened to verbal stimuli. Slow to respond, HX: of head injury from fall that landed him wheelchair bound. Answers once in a while. Very Withdrawn. Tachypenic rate in harvey 30's, on non-rebreather at 15L sats mid 90's. LS fine crackles t/o. Aspirated in ED on emesis. Tachycardic rate 130's, sinus. 2nd liter of NS infusing now. ABD severe distention firm and round. BT very hypoactive. NGT hooked to LIS, brownish black drainage. Denies any nausea at this time. Smear noted to coccyx, cleansed him up. Attends clean. Myrick with major cloudy urine. 2 IV's bilaterally both patent. Skin warm, scabs to left viveros only, rest is intact. Granddaughter here. States her mother is POA. Information gotten.
--- NOTE | 2021-11-19 20:20 | NUR ---
RT in room, placed patient on 5-6 liters NC as SATS were 100% now in the mid 90-100. Will continue to monitor.
--- NOTE | 2021-11-19 20:37 | NUR ---
DR. Lorenz in room. Informed of Critical Lactic acid level. No new orders. Patient has improved since getting him settled in the room. Sats are 98% on 6 liters of O2 NC. Resp have decreased to the 20's. Blood pressure has came down to normal. HR still tachycardic. NGT continues to put out brownish black drainage. Pt is resting comfortably, call light in reach. Grand-daughter left for the evening.
[2021-11-19] MEDS ORDERED: LIDO700A20 TOP (21:08)
--- NOTE | 2021-11-19 22:28 | NUR ---
Pt temp 100.5 and climbing, HR tachycardic in the 130's, BP 123/100. Informed Dr. Lorenz of changes. Got order for tylenol suppository. He said wait till the fever comes down before making any other changes.
--- NOTE | 2021-11-20 | NUR ---
TEMP PROP NOT READING CORRECTLY, UP AND DOWN READINGS CONTINUESOUSLY. DISCONNECTED THE PROP. TYMPANIC SHOWS 98.8 CURRENTLY. hR HAS DECREASED BACK TO THE 110'S, RESP IN 20'S. BP STABLE. hE WILL OPEN HIS EYES WHEN YOU TALK TO HIM BUT WILL NOT RESPOND TO QUESTIONS ANY MORE, HE JUST STARES, THEN CLOSES HIS EYES. PUPILS STILL SLUGGISH, WEAK GUZZLER BUILDER.
--- NOTE | 2021-11-20 02:30 | NUR ---
Got back from lunch to find patient diaphrotic, clammy, hot to the touch. Tympanic temp 98.8, auxillary temp 101.4. Attempted to reconnect temp huston in hopes it would work, no luck. Tylenol suppository given, repositioned. Noticed suction to NGT also not pulling correctly, turned to continuous for a few minutes and got 100cc out. Turned suction up a little more to moderate in attempt to get better suction. Will monitor output and temp.
[2021-11-20 04:13] LABS: Hematocrit 39.3 % (37.0-53.0); Hemoglobin 13.3 g/dL (13.5-17.5); Mean Corpuscular HGB Conc 33.8 g/dL (31.5-36.5); Mean Corpuscular Volume 86 fL (80-100); Platelet Count 273 K/mm3 (150-400); RDW Coefficient Variation 14.2 % (11.7-14.2); RDW Standard Deviation 44.4 fL (35.1-46.3); Red Blood Cell Count 4.59 M/mm3 (4.30-5.90); White Blood Cell Count 12.16 K/mm3 (4.00-11.30)
[2021-11-20 04:35] LABS: Albumin, Blood 3.2 g/dL (3.4-5.0); Albumin/Globulin Ratio 0.9 (0.8-1.8); Bilirubin, Total 1.5 mg/dL (0.1-1.0); Bun/Creatinine Ratio 23.6 (12.0-20.0); Calcium, Blood 9.1 mg/dL (8.5-10.1); Creatinine, Blood 0.93 mg/dL (0.60-1.20); Globulin, Blood 3.7 g/dL (2.2-4.0); Potassium, Blood 3.4 mmol/L (3.5-5.5); Total Protein, Blood 6.9 g/dL (6.4-8.2)
[2021-11-20 05:24] LABS: BAND PERCENT MAN 54 % (0-8); BASOPHILS PERCENT MAN 0 % (0-2); EOSINOPHILS PERCENT MAN 0 % (0-6); LYMPHOCYTES ABSOLUTE MAN 1.09 K/mm3 (0.84-5.20); LYMPHOCYTES PERCENT MAN 9 % (21-46); MONOCYTES ABSOLUTE MAN 0.85 K/mm3 (0.16-1.47); MONOCYTES PERCENT MAN 7 % (4-13); NEUTROPHILS ABSOLUTE MAN 10.21 K/mm3 (1.96-9.15); SEG NEUTROPHILS PERCENT MAN 30 % (41-73); TOTAL CELLS COUNTED 100
--- NOTE | 2021-11-20 05:57 | NUR ---
Shift Summary: Pt alert at times, has been lethargic most of shift. Will open eyes, answer few questions but other times won't even respond. Very flat affect. HX. of head injury. Per Grandaughter he normally takes a while to answer but never this bad. Ems Director are weak bilaterally, limited ble movement. wheelchair bound at baseline. Febrile with Tmax 101.4. Tylenol was given twice. No pain noted. LS crackles, occational moist cough, Decreased O2 frin 15L non-rebreather to 6L NS, sats maintaining >95%. HR decreased from 130-140's to 110's on avearage. Sinus tach. BP has maintained WNL. Abd distended firm ridgit, NGT to LIS with 600cc greenish brown drainage. Nausea has subsided. Chronic huston changed in ER, major cloudy with sediment urine, only 500cc this shift. 1L NS of 1.5L ordered currently infusing. Abnormal labs consist of lactic acid of 3.5 on admit which was the repeat, K+ 3.4 and WBC which came down to 12.16. BS WNL. [facility] call light is in reach, bed in low position.
--- NOTE | 2021-11-20 07:17 | NUR ---
ASSUMED CARE: PT RESTING QUIETLY, 6L IN PLACE VIA NC AT THIS TIME. NG TO LIS WITH BROWN FLUID DRAINING. SINUS TACH AT 103 AT THIS TIME. NO ACUTE NEEDS OR CONCERNS.
--- NOTE | 2021-11-20 09:56 | NUR ---
DR YOUNGER CAME TO SEE PT. DOWNGRADED TO PCU STATUS DUE TO BEING ON 4L NC. TO REVIEW FLUID ORDERS. DR AWARE THAT PT HAS NG TO LIS AND NURSE HELD AM MEDS UNTIL SURGICAL CONSULT OCCURS. CELEBRITY CHEF ENTREPRENEUR MEDIA PERSONALITY AWARE OF STATUS CHANGE
--- NOTE | 2021-11-20 16:29 | NUR ---
PT TRANSFERRED TO PCU 18, REPORT GIVEN TO LIONEL MEDINA. PT'S ATTENDS CHANGED PRIOR TO TRANSFER. RED SPOT NOTED LEFT OF COCCYX BUT BLANCHABLE. MEPILEX PLACED AND COLD STORAGE SUPERVISOR AND SIZE MIXER AWARE. PT TRANSFERRED VIA BED AND CEILING LIFT USED TO PUT IN NEW BED. NG TUBE CLAMPED FOR TRANSFER AND PT TOLERATED WELL. NO FURTHER NEEDS OR CONCERNS AT THIS TIME.
--- NOTE | 2021-11-20 17:02 | NUR ---
ARRIVAL TO PCU/SHIFT SUMMARY PATIENT ARRIVED FROM ICU AT APPROX 1600. PATIENT TRANSFERD TO PCU BED VIA LIFT. VSS. TELE SINUSTACH AT 104. SPO2 >90% ON RA. NG RECONNECTED TO LOW INTERMITTEN SUCTION, GREEN COLORATION BEING SUCTIONED OUT. PATIENT IS ALERT. PATIENT IS ORIENETED TO PLACE, SEASON, AND YEAR. IN ORDER TO GET THESE RESPONSES THIS RN HAD TO ASK IF THE PATIENT KNEW THE SEASON, BECAUSE WAS UNABLE TO STATE WHAT MONTH, WHEN ASKING THE YEAR THIS RN ASKED IF IT WAS 2019, , OR 2021, AND PATIENT STATED CORRECT YEAR. PATIENT STATED THAT HE WAS AT [facility] AND THIS RN ORIENTED TO THE ROOM AND UNIT. PATIENT IS SLOW TO RESPOND, AND IN REPORT THIS IS PATIENT BASELINE, BUT THE CONFUSION IS NOT. PERRLA. LUNG SOUNDS COARSE AND PATIENT REPORTS NO SHORTNESS OF BREATH. PATIENT REPORTS NO CHEST PAIN. STRONG RADIAL AND PEDIS PULSE. CAP REIFLL <3SECONDS. PATIENT HAS SCABS SCATTERED THROUGHOUT AND DURING TRANSFER PREP MANAGER INFORMED THAT THERE IS A RED BLANACHABLE SPOT TO BOTTOM AND MEPILEX APPLIED. PATIENT IS IN NO DISTRESS. PATIENT HAS NORMAL SALINE KCL 20 MEQ INFUSING AT 100MLS/HR. PATIENT HAS IV ABX ZOZYN INFUSING AT 20MLS/HR. PATIENT HAS CHRONIC ALVAREZ CATH DRAINING WITH GRAVITY, YELLOW COLORATION. PATIENT REPORTS NO PAIN. CALL LIGHT IS WITHIN REACH AND BED IN LOWEST POSITION. WILL CONTINUE TO MONITOR AND PROVIDE CARE UNTIL HAND OFF WITH NEXT SHIFT.
--- NOTE | 2021-11-20 20:45 | NUR ---
ASSUMED CARE OF PATIENT AT APPROXIMATELY 1905 FROM CAROL Nicole RN. PATIENT RESPONDS TO VERBAL STIMULUS; SLOW TO RESPOND TO QUESTIONS; DOESNT RESPOND TO EVERY QUESTION BUT WILL SAY NAME AND ; ANSWER YES OR NO QUESTIONS AT TIMES. PATIENT NOT ABLE TO STATE LOCATION, DATE, OR EVENT. PATIENT HAS NG TUBE TO LIS; GREEN YELLOW AND BROWN OUTPUT. Q2H TURNS; FULL CARE PATIENT; ORAL CARE WITH SUCTION COMPLETED. NSR ON TELE; OXYGEN SATURATION ABOVE 90% ON ROOM AIR; 2X PIV INFUSING PER ORDER. CHRONIC ALVAREZ DRAINING TO GRAVITY. PATIENT DENIES PAIN, NUMBNESS, TINGLING, NAUSEA, AND DIZZINESS.
--- NOTE | 2021-11-21 02:26 | NUR ---
CALLED DR. BENSON TO REPORT PATIENT'S DROP IN OXYGEN SATURATION TO LOW 80'S AND REQUIRING 6LPM OF NC TO MAINTAIN OXYGEN SATURATION OF 92%; L/S COARSE; PATIENT COUGHING UP SAME COLORED OUTPUT IN NGT. NGT TO LIS WITH 375 OF GREEN BROWN OUTPUT. ORDERS FOR STAT CHEST X-RAY AND CALL DR. BENSON BACK WHEN IT RESULTS.
[2021-11-21 04:06] LABS: Hematocrit 39.2 % (37.0-53.0); Hemoglobin 12.8 g/dL (13.5-17.5); Mean Corpuscular HGB Conc 32.7 g/dL (31.5-36.5); Mean Corpuscular Volume 89 fL (80-100); Mean Platelet Volume 10.2 fL (9.1-12.4); Platelet Count 248 K/mm3 (150-400); RDW Coefficient Variation 14.4 % (11.7-14.2); RDW Standard Deviation 46.6 fL (35.1-46.3); Red Blood Cell Count 4.41 M/mm3 (4.30-5.90); White Blood Cell Count 7.94 K/mm3 (4.00-11.30)
[2021-11-21 04:25] LABS: Albumin, Blood 3.1 g/dL (3.4-5.0); Anion Gap 9 mmol/L (6-16); Blood Urea Nitrogen 25 mg/dL (8-24); Bun/Creatinine Ratio 27.7 (12.0-20.0); CO2, Blood 23 mmol/L (21-32); Calcium, Blood 9.3 mg/dL (8.5-10.1); Chloride, Blood 117 mmol/L (98-108); Glomerular Filtration Rate 95 (60-); Glucose, Blood 130 mg/dL (70-99); Phosphorus, Blood 2.1 mg/dL (2.5-4.9); Potassium, Blood 3.2 mmol/L (3.5-5.5); Sodium, Blood 149 mmol/L (136-145)
[2021-11-21 04:46] LABS: BAND PERCENT MAN 39 % (0-8); BASOPHILS PERCENT MAN 0 % (0-2); EOSINOPHILS ABSOLUTE MAN 0.07 K/mm3 (0.00-0.68); EOSINOPHILS PERCENT MAN 1 % (0-6); LYMPHOCYTES PERCENT MAN 19 % (21-46); MONOCYTES ABSOLUTE MAN 0.95 K/mm3 (0.16-1.47); MONOCYTES PERCENT MAN 12 % (4-13); NEUTROPHILS ABSOLUTE MAN 5.39 K/mm3 (1.96-9.15); SEG NEUTROPHILS PERCENT MAN 29 % (41-73); TOTAL CELLS COUNTED 100
--- NOTE | 2021-11-21 06:25 | NUR ---
PATIENT SLEPT ABOUT FOUR HOURS LAST NIGHT. CURRENTLY BACK ON ROOM AIR; 500ML OF OUTPUT FROM NG TUBE. NO OTHER ACUTE CHANGES.
--- NOTE | 2021-11-21 09:14 | NUR ---
CARE ASSUMPTION THIS RN ASSUMED CARE AT 0700 FROM LEILA FLOWERS. PATIENT IS ALERT, BUT DOESN'T RESPOND TO ALL QUESTIONS WHEN ASKED. PATIENT IS OREINTED TO SEASON, YEAR, AND PLACE. IN ORDER TO GET THESE QUESTIONS RN HAD TO NAME OFF THE DIFFERENT SEASONS AND YEAR. PATIENT ABLE TO SAY AT THE HOSPITAL IN [place]. PATIENT IS SLOW TO RESPOND AND THIS RN HAS TO REPEAT THE QUESTION MULTIPLE TIMES TO GET A RESPONSE. PATIENT FOLLOWS SOME COMMANDS, BUT NOT ALL. PERRLA. PATIENT HAS WEAKNESS UPPER AND LOWER EXTREMITIES. PATIENT IS WHEELCHAIR BOUND FROM A PERVIOUS HEAD INJURY BUT CAN MOVE LOWER EXTREMITIES. VSS. TELE SR 98. SPO2 >90% ON RA. PATIENT REPORTS NO CHEST PAIN/PRESSURE. STRONG RADIAL AND PEDIS PULSES, CAP REFILL <3SECONDS, AND NO EDEMA NOTED. PATIENT REPORTS NO SHORTNESS OF BREATH. LUNG SOUNDS COARSE UPPER LOBES AND DIM LOWER LOBES. SKIN HAS SCABS SCATTERED THROUGHOUT, AND REDDNESS TO BOTTOM. MEPILEX IN PLACE AND Q2 REPOSITIONING. PATIENT ABD IS FIRM, MODERATE DISTENTION, AND HYPOACTIVE BOWEL TONES. NG TUBE HOOKED UP TO LIS AND IS LOWER THAN THE BED, DUE TO NOT DRAINING CORRECTLY DURING THE NIGHT. ALVAREZ IN PLACE DRAINING WITH GRAVITY, YELLOW COLORATION. SEE SHIFT ASSESSMENT FOR FURTHER DETAILS. ORAL CARE DONE THIS AM HOOKED UP TO SUCTION. CATH CARE AND ELIZ CARE DONE THIS AM. RANGE OF MOTION IN UPPER AND LOWER EXTREMITIES DONE THIS AM. MD YOUNGER IN TO SEE PATIENT THIS AM. PATIENT REMAINS NPO. THIS RN WENT OVER PLAN OF CARE WITH PATIENT AND EDUCATION. UNABLE TO ASSESS PATIENT UNDERSTANDING. THIS RN PROVIDED THERAPUETIC COMMUNICATION. CALL LIGHT IS WITHIN REACH AND BED IN LOWEST POSITION. WILL CONITNUE TO MONITOR AND PROVIDE CARE.
--- NOTE | 2021-11-21 10:31 | NUR ---
UPDATE AN ORDER WAS PUT IN BY MD FRANCISCO FOR A CLEAR LIQUID DIET FOR DINNER TO SEE HOW PATIENT TOLERATES AND FOR NG TO BE TURNED OFF OF LOW INTERMITTEN SUCTION AND TO DRAIN WITH GRAVITY. WILL MONITOR PATIENT CLOSELY TO ENSURE PATIENT TOLERATES THIS WELL. CALL LIGHT WITHIN REACH.
--- NOTE | 2021-11-21 17:13 | NUR ---
SHIFT SUMMARY PATIENT NEURO REMAINS THE SAME. VSS. HYPERTENSIVE, BUT NOT WITHIN PARAMETERS TO GIVE THE PRN BP MEDICATION. THIS RN DID A BEDSIDE SWALLOW EVAL DUE TO MD FRANCISCO PUTTING IN A DIET ORDER. PATIENT WAS UNABLE TO STAY AWAKE, AND WOULD NOT DO A STRONG COUGH. SEE BEDSIDE SWALLOW EVAL FOR MORE INFORMATION. PATIENT DID NOT PASS, AND THIS RN DID NOT FEEL COMFORTABLE ALLOWING PATIENT TO HAVE CLEAR LIQUID DIET AT DINNER. WILL PASS ALONG TO EVENING SHIFT. NG IS DRAINING TO GRAVITY PER MD FRANCISCO ORDER. PATIENT HAS HAD ORAL CARE DONE MULTIPLE TIMES THROUGHOUT THE DAY AND SUCTIONING DONE WELL. PATIENT HAS BEEN REPOSITIONED EVERY TWO HOURS. PATIENT HAD A SMEAR BM THIS SHIFT. NO ACUTE CHANGES. FAMILY UPDATED. CALL LIGHT WITHIN REACH AND BED IN LOWEST POSITION. WILL CONTINUE TO MONITOR AND PROVIDE CARE UNTIL HAND OFF WITH NEXT SHIFT.
--- NOTE | 2021-11-22 06:09 | NUR ---
SHIFT SUMMARY PATIENT ALERT AND ORIENTED x3. FLAT AFFECT. ANSWERS YES/NO QUESTIONS, NEEDS PROMPTED WITH MULTIPLE RESPONSES FOR IN DEPTH QUESTIONS. EYES FIXED FORWARD UPON ENTERING PATIENT'S ROOM, DOES NOT TRACK STAFF. VSS. PATIENT ON RA WITH O2 SAT >90%. NG TUBE IN PLACE DRAINING TO GRAVITY PER ORDER, APPROXIMATELY 350mls INTO SUCTION CANISTER. DENIES NAUSEA OR ABDOMINAL DISCOMFORT DURING THE SHIFT. ALVAREZ IN PLACE DRAINING DARK YELLOW URINE TO GRAVITY. NO OTHER SIGNFICANT CHANGES THIS SHIFT, WILL REPORT TO DAY SHIFT RN.
--- NOTE | 2021-11-22 12:09 | NUR ---
CALLED DR. FRANCISCO AND ASKED IF HE WANTED TO HAVE THE PATIENTS NG TUBE CLAMPED AND TO ALSO HAVE REGLAN FOR INCREASED MOTILITY IN ABD. DR. FRANCISCO STATED TO "HAVE THE NG TUBE CLAMPED UNTIL PATIENT IS FEELING NAUSEOUS OR BLOATED THEN HAVE HIM HOOKED BACK UP". DR. FRANCISCO ALSO PUT IN THE ORDERS FOR REGLAN. PATIENT IS TOLERATING SMALL AMOUNTS OF PO INTAKE AT THIS TIME IN BED. CALL LIGHT WITHIN REACH.
--- NOTE | 2021-11-22 15:05 | NUR ---
SHIFT SUMMARY: SBO PATIENT IS ALERT AT TIMES BUT DOES HAVE A FLAT AFFECT. CAN ANSWER TO YES/NO QUESTIONS EASIEST. PATIENTS EYES MAINLY STAY LOOKING FORWARD EVEN WHEN TALKING TO STAFF. PATIENT WILL SOMETIMES NOT RESPOND TO QUESTIONS AND KEEP LOOKING FORWARD. HOWEVER, WHEN ASKED IF PATIENT FELT NAUSEOUS AFTER EATING SOME LUNCH AND HAVING THE NG TUBE CLAMPED OFF HE DENIED THE FEELING OF BEING NAUSEOUS OR LIKE HE WANTED TO VOMIT. ABD IS STILL FIRM BUT PATIENT DID HAVE A SMEAR OF A BM WHEN WHEN TURNING HIM. PATIENT IS ALSO DENYING PAIN IN ABD WHEN ASKED. BOWEL TONES ARE HYPOACTIVE. CHRONIC ALVAREZ CATHETER IS IN PLACE AND DRAINING ROMMEL COLORED URINE. PATIENT IS WHEELCHAIR BOUND AT BASELINE AND IS VERY STIFF IN ARMS/LEGS WELL WEAK. 2-3 PERSON ASSIST TO CHANGE POSITIONS OR CHANGE ATTENDS. MEPLIEX IN PLACE ON COCCYX SINCE THERE IS A SLIGHT RED SPOT. CONTINUING Q2 TURNS DURING SHIFT. ABX WITH FLUIDS ARE INFUSING THROUGH HIS IV IN RIGHT HAND. CALL LIGHT WITHIN REACH. THE PLAN IS TO OBSERVE IF THE PATIENT CAN CONTINUE TO TOLERATE CLEARS WITH NG TUBE CLAMPED.
--- NOTE | 2021-11-22 21:00 | NUR ---
2100 MEDS PATIENT NOT ANSWERING QUESTIONS DURING ASSESSMENT. PER REPORT PATIENT WAS TOLERATING SMALL AMOUNTS OF PO FLUIDS. DURING ORAL CARE PATIENT NOT FOLLOWING DIRECTIONS. MEDICATIONS HELD D/T POSSIBILITY OF ASPIRATION. NG TUBE IN PLACE, REMAINS CLAMPED.
[2021-11-23 04:26] LABS: Albumin, Blood 3.1 g/dL (3.4-5.0); Anion Gap 9 mmol/L (6-16); Blood Urea Nitrogen 33 mg/dL (8-24); Bun/Creatinine Ratio 33.3 (12.0-20.0); CO2, Blood 26 mmol/L (21-32); Calcium, Blood 9.5 mg/dL (8.5-10.1); Chloride, Blood 117 mmol/L (98-108); Creatinine, Blood 0.99 mg/dL (0.60-1.20); Glomerular Filtration Rate 85 (60-); Glucose, Blood 173 mg/dL (70-99); Phosphorus, Blood 3.3 mg/dL (2.5-4.9); Sodium, Blood 152 mmol/L (136-145)
--- NOTE | 2021-11-23 04:45 | NUR ---
UPDATE PT'S BP INCREASED WELL SLIGHTLY DIAPHORETIC. PATIENT UNABLE TO TELL THIS RN IF HE IS FEELING NAUSEOUS OR UNCOMFORTABLE. ABDOMEN IS FIRM AND MORE DISTENDED THEN WHEN FIRST ASSESSED. NG TUBE HOOKED BACK UP TO INTERMITTENT SUCTION AND MEDICATED WITH REGLAN. IMMEDIATLEY DRAINED ABOUT 500 MLS OF DARK GREEN, THICK LIQUID. CONTINUES TO DRAIN INTO SUCTION CANISTER WITH LOW INTERMITTENT SUCTION. COLD WASH RAG TO PATIENT'S FOREHEAD FOR COMFORT.
--- NOTE | 2021-11-23 05:43 | NUR ---
SHIFT SUMMARY PATIENT ALERT, RESPONDS TO VERBAL STIMULI. EYES FIXED FORWARD AND DOES NOT TRACK STAFF WHILE IN THE ROOM. PATIENT VERY SLOW TO RESPOND. PATIENT ANSWERS YES/NO QUESTIONS EASIEST. VSS. PATIENT ON RA WITH O2 SAT >90%. NG TUBE IN PLACE, HOOKED UP TO SUCTIONS SINCE ABOUT 0435, SEE PREVIOUS NOTE. ALVAREZ IN PLACE DRAINING DARK YELLOW URINE TO GRAVITY. NO OTHER SIGNIFICANT CHANGES THIS SHIFT. WILL REPORT TO DAY SHIFT RN.
--- NOTE | 2021-11-23 08:20 | NUR ---
SPOKE WITH DR. ELLIOTT REGARDING CHANGE IN LOC/BASELINE FUNCTION. WITH AM VS PT WAS TACHYCARDIC, TACHYPNIC, AND FEBRILE. DEEP SUCTIONIG PROVIDED BY RT FOR EXCESS SECRETIONS. DR. ELLIOTT AWARE, WILL CONTINUE TO MONITOR.
[2021-11-23 08:53] LABS: Base Excess Venous 0.1 mmol/L; Bicarbonate Venous 25.4 mmol/L (24.0-30.0); PCO2 Venous 27.8 mmHg (38-42); PO2 Venous 63.9 mmHg (38-42); pH Blood Venous 7.52 (7.34-7.37)
[2021-11-23 09:03] LABS: Hematocrit 42.8 % (37.0-53.0); Hemoglobin 13.8 g/dL (13.5-17.5); Mean Corpuscular HGB 28.5 pg (26.0-34.0); Mean Corpuscular HGB Conc 32.2 g/dL (31.5-36.5); Mean Corpuscular Volume 88 fL (80-100); Mean Platelet Volume 10.4 fL (9.1-12.4); Platelet Count 274 K/mm3 (150-400); RDW Coefficient Variation 14.6 % (11.7-14.2); RDW Standard Deviation 47.3 fL (35.1-46.3); Red Blood Cell Count 4.84 M/mm3 (4.30-5.90); White Blood Cell Count 11.06 K/mm3 (4.00-11.30)
--- NOTE | 2021-11-23 11:26 | NUR ---
NOON REASSESSMENT PT'S LOC IS UNCHANGED FROM THIS AM. PT AWAKENS TO PAINFUL STIMULI AND SPONTANEOUSLY OPENS HIS EYES, HOWEVER; HE DOES NOT RESPOND TO VERBAL STIMULI. LUNG SOUNDS CONTINUE TO BE RHONCOROUS T/O AND DIM IN THE BASES. RESPIRATORY RATE REMIANS IN THE LOW TO MID 30'S. PT IS TACHYCARDIC WITH ELEVATED BLOOD PRESSURE AND FEVER OF 101.9; DR. ELLIOTT NOTIFIED. ORDER FOR TYLENOL CT RECEIVED FROM DR. ELLIOTT. DR. ELLIOTT NOTIFIED OF UPWARD TREND IN HEART RATE, HE REPORTED HE WOULD PLACE ORDERS. WILL AWAIT ORDERS AND CONTINUE TO MONITOR.
--- NOTE | 2021-11-23 12:30 | NUR ---
ELEVATED HR AND BP DR. ELLIOTT CONTACTED REGARDING CONTINUED ELEVATED HR, BP AND FEVER. TYLENOL GIVEN FOR FEVER AND ICE PACK PLACED TO ASSIST WITH REDUCING TEMP. PT HAD A SHORT RUN OF SVT PRIOR TO METOPROLOL ADMINISTRATION. METOPROLOL IV GIVEN FOR ELEVATED HR OF 123-131. HR HAS IMPROVED TO 111. WILL CONTINUE TO MONITOR.
--- NOTE | 2021-11-23 15:50 | NUR ---
PT'S FAMILY IS AT THE BEDSIDE FOR SUPPORT. THEY HAVE QUESTIONS ABOUT PT'S ALTERED MENTAL STATUS. DR. ELLIOTT NOTIFIED THAT PT'S FAMILY HAS QUESTIONS.
--- NOTE | 2021-11-23 17:05 | NUR ---
EVENING ASSESSMENT PT REMAINS MINIMALLY RESPONSIVE HOWEVER HE DID WAKE UP AND OPEN HIS EYES WHEN HIS GRANDDAUGHTER WAS HERE. LUNG SOUNDS ARE CLEAR BUT DIM IN THE BASES. ASSESSMENT REMAINS MOSTLY UNCHANGED FROM PREVIOUS ASSESSMENT. WILL CONTINUE TO MONITOR.
--- NOTE | 2021-11-23 17:39 | NUR ---
SHIFT SUMMARY PT HAS BEEN MINIMALLY RESPONSIVE T/O THE DAY. HE AWAKENS OCCASIONALLY BUT IS UNABLE TO ANSWER Y/N QUESTIONS. PT'S GRANDDAUGHTER VISITED THIS AFTERNOON AND REPORTS THAT PT IS ABLE TO HOLD A CONVERSATION AT BASELINE BUT IS OFTEN SLOW TO RESPOND. PT HAS BEEN REPOSITIONED Q2 HOURS WITH ASSISTANCE. PT HAS HAD 2 LIQIUID BM'S BUT ABD REMAINS DISTENDED AND FIRM; DR. FRANCISCO NOTIFIED. NG TUBE REMAINS TO LOW INTERMITTENT SUCTION. PT CONTINUES TO HAVE A LOW GRADE FEVER T/O THE DAY. PT HAS BEEN TACHYCARDIC AND HYPERTENSIVE, MANAGED WITH IV LOPRESSOR AND CLONIDINE PATCH. PT'S RESPIRATORY RATE REMAINS ELEVATED HOWEVER LUNG SOUNDS ARE IMPROVED THIS EVENING FROM THIS AM. PT HAS DECREASED SECRETIONS AFTER SUCTIONING BY RN. WILL MONITOR UNTIL REPORT TO NOC RN.
[2021-11-24 03:56] LABS: BASOPHILS ABSOLUTE AUTO 0.09 K/mm3 (0.00-0.23); BASOPHILS PERCENT AUTO 1 % (0-2); Hematocrit 42.7 % (37.0-53.0); Hemoglobin 13.6 g/dL (13.5-17.5); LYMPHOCYTES ABSOLUTE AUTO 1.44 K/mm3 (0.84-5.20); LYMPHOCYTES PERCENT AUTO 13 % (21-46); MONOCYTES ABSOLUTE AUTO 1.86 K/mm3 (0.16-1.47); MONOCYTES PERCENT AUTO 17 % (4-13); Mean Corpuscular HGB 28.6 pg (26.0-34.0); Mean Corpuscular HGB Conc 31.9 g/dL (31.5-36.5); Mean Corpuscular Volume 90 fL (80-100); Mean Platelet Volume 10.8 fL (9.1-12.4); Platelet Count 273 K/mm3 (150-400); RDW Coefficient Variation 14.4 % (11.7-14.2); RDW Standard Deviation 47.8 fL (35.1-46.3); Red Blood Cell Count 4.75 M/mm3 (4.30-5.90); White Blood Cell Count 10.85 K/mm3 (4.00-11.30)
[2021-11-24 03:59] LABS: EOSINOPHILS ABSOLUTE AUTO 0.13 K/mm3 (0.00-0.68); EOSINOPHILS PERCENT AUTO 1 % (0-6); IMMATURE GRAN ABSOLUTE AUTO 0.11 K/mm3 (0.00-0.10); IMMATURE GRAN PERCENT AUTO 1 % (0-1); NEUTROPHILS ABSOLUTE AUTO 7.22 K/mm3 (1.96-9.15); NEUTROPHILS PERCENT AUTO 67 % (41-73)
[2021-11-24 04:12] LABS: Albumin, Blood 2.9 g/dL (3.4-5.0); Anion Gap 9 mmol/L (6-16); Blood Urea Nitrogen 49 mg/dL (8-24); Bun/Creatinine Ratio 40.8 (12.0-20.0); CO2, Blood 26 mmol/L (21-32); Calcium, Blood 9.6 mg/dL (8.5-10.1); Chloride, Blood 119 mmol/L (98-108); Glomerular Filtration Rate 67 (60-); Glucose, Blood 153 mg/dL (70-99); Phosphorus, Blood 2.9 mg/dL (2.5-4.9); Sodium, Blood 154 mmol/L (136-145)
--- NOTE | 2021-11-24 10:27 | NUR ---
AM NOTE: PATIENT OPENING EYES SPONT AND RESPONDING TO PAIN. OCCASIONALLY MOANING. NO VERBAL RESPONSE. Q2 TURNING IN BED. RESISTANCE FELT IN UPPER EXTREMITIES AT TIMES WHEN TURNING. ON ROOM AIR - 1L NASAL CANNULA SATING LOW 90'S. RHONCHI HEAR IN UPPER LOBES. OCCASIONAL WEAK MOIST SOUNDING COUGH. ORAL CARE Q4 AND NEEDED. SUCTION READY AT BEDSIDE. SUCTIONING NEEDED. TELE SHOWING SINUS TACH WITH HR 110-120'S. MORN METOPROLOL GIVEN. WILL CONTINUE TO MONITOR. HEART SOUNDS HEARD CLEARLY. NO SIGNS OF EDEMA. CLONIDINE PATCH TO SAMMY. VERY SMALL LIQUID BM THIS AM. ALVAREZ CATH IN PLACE DRAINING DARK YELLOW URINE. CATH CARE COMPLETED THIS AM. SPOKE WITH DR. ELLIOTT THIS AM, PROVIDED UPDATE. PLAN FOR PPN TO START TODAY. UPDATE PROVIDED TO DAUGHTER RAYMOND. ZOSYN INFUSED THIS AM. IV'S SALINE LOCKED AT THIS TIME. NG TUBE TO LOW INTERMIT SUCTION, DRAINING CLEAR/GREEN LIQUID ABDOMEN DISTENDED AND FIRM. HYPERACTIVE BOWEL TONES. CLAMPED NG TUBE THIS AM FOR 30 MIN WITH MED ADMINISTRATION. REMAINS NPO. Q6 BLOOD SUGARS. Q2 TURNING AND NEEDED. MEPILEX TO COCCYX AND LEFT ELBOW THIS AM. SKIN OVERALL C/D/I. SKIN TEAR TO LEFT ELBOW, REDNESS TO COCCYX, AND SCAB TO LLE. ELEVATED TEMP THIS AM, FAN IN PLACE WELL TYLENOL MI. WILL CONTINUE TO MONITOR.
--- NOTE | 2021-11-24 11:10 | NUR ---
CALL PLACED TO TALK TO DR. ELLIOTT ABOUT PATIENT AM LABS. NO NEW ORDERS FOR THIS RN AT THIS TIME. WILL CONTINUE TO MONITOR.
--- NOTE | 2021-11-24 12:27 | NUR ---
THIS RN CONCERNED WITH PATIENT RESPIRATORY STATUS. SOUNDING MORE GRAVELY/RHONCHI. RESPIRATORY CALLED, DEEP SUCTION. SPUTUM MIXED WITH YELLOW GREEN BILE. CONCERN FOR ASPIRATION. CALL PLACED TO DR. FRANCISCO TO UPDATE ON STATUS. THIS RN DISCUSSED, DEEP SUCTIONING, COLOR OF SPUTUM, NG TUBE TO LOW INTERMIT SUCTION, LIQUID STOOL, TEMP, RR RATE/LUNG SOUNDS, OXYGEN STATUS, AND OVERALL STATUS. NO NEW ORDERS. CALL PLACED TO DR. ELLIOTT TO UPDATE WELL. ABDOMEN REMAINS FIRM AND DISTENDED. TEMP 100.4. ICE PACKS, COOL WASHCLOTH AND FAN IN PLACE. 2L O2 VIA NASAL CANNULA. SATS IMPROVING AFTER SUCTIONING. WILL CONTINUE TO MONITOR.
--- NOTE | 2021-11-24 13:28 | NUR ---
PATIENT DOWN TO CT AT THIS TIME. NG TUBE CLAMPED FOR CT SCAN.
--- NOTE | 2021-11-24 13:48 | NUR ---
Pt resting in bed with his eyes closed. Pt does not respond to moderate level verbal stimuli and gentle touch. Pt appears comfortable with no S/S of distress at this time. Spoke with Primary RN Fatemeh and discussed case. Concerns that Pt may be aspirating. Plan for Pt to start IV nutrition today. Reviewed plan of care. Pt has POLST on file completed in May of last year. Pt's wishes are DNR with Limited Interventions. POLST has not been signed by a provider. Called and spoke with Pt's daughter Lakeshia who is listed on Pt's advanced directive as healthcare agent. Provided update and reviewed plan of care. Discussed Pt's POLST and wishes regarding resucitation. Lakeshia reports Pt's wishes should be followed and agree Pt should be DNR. Called and spoke with Pt's other daughter Carmen. Provided update and reviewed plan of care. Discussed code status with Carmen who also agrees Pt should be DNR. Spoke with Dr Cortes and discussed case. Dr Cortes will change Pt's code status to DNR.
--- NOTE | 2021-11-24 17:21 | NUR ---
DR. FRANCISCO BY TO ASSESS PATIENT. NO NEW ORDERS AT THIS TIME. NG REMAINS TO LOW INTERMIT SUCTION. PPN STARTED AND 0.45 % NS STOPPED FOR EMAR/DR. ELLIOTT ORDERS. VITAL SIGNS REMAINS STABLE.
--- NOTE | 2021-11-24 17:41 | NUR ---
SHIFT SUMMARY: SEE PREVIOUS NOTES FOR UPDATES THROUGHOUT SHIFT. NO CHANGES TO NEURO, OCCASIONALLY OPENING EYES AND MOANING NOISES. EYES NOT TRACKING WHEN OPEN AND VERY MINIMAL PUPILS RESPONSE. PATIENT NOT ABLE TO FOLLOW COMMANDS SUCH "SQUEEZE FINGERS" OR "OPEN MOUTH". RESISTANCE FELT WHEN Q2 TURNING. PATIENT FEELING STIFF. ROM DONE WITH Q2 TURNS. ON 3L NASAL CANNULA SATING LOW 90'S. NASAL CANNULA IN MOUTH, PATIENT IS MOUTH BREATHING. CONTINUOUS BIOX IN PLACE. LUNGS SOUNDS IMPROVED FROM THIS AM ALTHOUGH STILL HEARING RHONCHI. DEEP SUCTION BY RT X2 THIS SHIFT WITH GOOD OUTPUT. CONCERN FOR ASPIRATION MADE AWARE TO DR. ELLIOTT AND DR. FRANCISCO. ON ANTIBIOTICS. CT SCAN DONE THIS AFTERNOON. ABDOMIN CONTINUES TO FEEL FIRM AND DISTENDED. NG TUBE TO LOW INTERMIT SUCTION WITH LARGE AMOUNT OF OUTPUT, SEE I/O DOCUMENTATION. OUTPUT GREEN BILE. OCCASIONAL WEAK MOIST SOUNDING COUGH. SUCTION SET UP AT BEDSIDE, Q4 ORAL CARE. Q6 BLOOD SUGARS. Q2 TURNING. REMAINS NPO. PPN INFUSING AT THIS TIME.
[2021-11-25 04:28] LABS: Anion Gap 11 mmol/L (6-16); Blood Urea Nitrogen 79 mg/dL (8-24); Bun/Creatinine Ratio 46.2 (12.0-20.0); CO2, Blood 25 mmol/L (21-32); Calcium, Blood 9.6 mg/dL (8.5-10.1); Chloride, Blood 119 mmol/L (98-108); Creatinine, Blood 1.71 mg/dL (0.60-1.20); Glomerular Filtration Rate 44 (60-); Glucose, Blood 238 mg/dL (70-99); Magnesium, Blood 2.6 mg/dL (1.6-2.4); Phosphorus, Blood 3.1 mg/dL (2.5-4.9); Sodium, Blood 155 mmol/L (136-145); Triglycerides 180 mg/dL (30-160)
--- NOTE | 2021-11-25 05:26 | NUR ---
SHIFT SUMMARY NO ACUTE CHANGES THIS SHIFT. PT REMAINS LETHARGIC, RESPONDS TO PAIN. VSS. NG TUBE TO LIS, DRIANED 700 MLS OF GREEN LIQUID THIS SHIFT. ALVAREZ CATHETER DRAINING TO GRAVITY. NO BM THIS SHIFT. REPOSITIONED Q2H. PPN INFUSED PER EMAR. ABX INFUSED PER EMAR. CALL LIGHT IN REACH.
--- NOTE | 2021-11-25 09:45 | NUR ---
AM NOTE: PATIENT OPENING EYES INTERMIT. EYES NOT TRACKING. PUPILS REACTING VERY MINIMALLY TO LIGHT. NOT MOVING SELF. Q2 TURNS AND NEEDED. SOME RESISTANCE FELT IN ARMS WHEN TURNING. WHEN ASKING PATIENT TO SQUEEZE HANDS VERY TINY MOVEMENTS MADE TO GRASP THIS RN HAND. ON 3L NASAL CANNULA SITTING IN MOUTH, PATIENT IS MOUTH BREATHING. SATING 92-93%. LUNGS SOUNDING COARSE/RHONCHI. ORAL CARE Q4 AND NEEDED. ORAL SUCTION AT BEDSIDE. TELE SHOWING SINUS TACH WITH HR 100-110'S. MORN PO METOPROLOL GIVEN VIA CRUSHED THROUGH NG TUBE. NG CLAMPED FOR 30 MIN AFTER MED ADMINISTRATION. BP STABLE. NO SIGNS OF EDEMA. NO JVD. HYPERTONIC BOWL SOUNDS. ABDOMEN FIRM AND DISTENDED. NG TUBE TO LEFT NARE HOOKED UP TO LOW INTERMIT SUCTION. OUTPUT GREEN/CLEAR. VERY SMALL SMEAR LIQUID BM THIS AM. RECTAL TEMP IN PLACE, MORN TEMP 101.7 TRENDING DOWN. [place] TYLENOL GIVEN AND ICE PACKS/COLD WASHCLOTH APPLIED. PPN INFUSING AT GOAL RATE. SPOKE WITH DR. ELLIOTT THIS AM REGARDING ADDING MORE FLUIDS WITH PPN, WILL CONTACT DIETARY. ANTIBIOTCS INFUSING WELL. Q6 BLOOD SUGARS. WILL CONTINUE TO MONITOR.
--- NOTE | 2021-11-25 10:56 | NUR ---
UPDATE: MODERATE-LARGE LIQUID BOWEL MOVEMENT WITH GRAIN/SAND LIKE TEXTURE. CEFEPIME AND VANCO INFUSED. PPN INFUSING. SPOKE WITH DIETARY/DR. ELLIOTT AND WILL ADD 1/2 NS IN ADDITION TO PPN. WILL CONTINUE TO MONITOR.
--- NOTE | 2021-11-25 12:29 | NUR ---
AFTERNOON ASSESSMENT: VITALS REMAIN STABLE. PATIENT MORE ALERT, OPENING EYES MORE OFTEN AND SPEAKING SMALL PHRASES. GAVE RAYMOND - DAUGHTER UPDATE. HELD PHONE TO PATIENTS EAR SO RAYMOND COULD TALK TO HIM. PATIENT SAYING "YES/NO" AND SMALL PHRASES LIKE "YES IT DID". WILL CONTINUE TO MONITOR.
--- NOTE | 2021-11-25 13:11 | NUR ---
DAUGHTER GITA IN TO SEE PATIENT. UPDATE PROVIDED. CANDY IS POA, SEE FACESHEET FOR NUMBER.
--- NOTE | 2021-11-25 18:32 | NUR ---
SHIFT SUMMARY: SEE PREVIOUS NOTES FOR UPDATES THROUGHOUT SHIFT. PATIENT CONTINUES TO SAY YES AND NO, OCCASIONALLY SHAKING HEAD. SOME LONGER PHRASES USED WELL. Q2 TURNING CONTINUES. ABLE TO FOLLOW COMMANDS SUCH OPEN MOUTH, SQUEEZE HANDS. ON 3 L NASAL CANNULA SATING LOW 90'S. VERY WEAK OCCASIONAL COUGH. ORAL CARE Q4 AND NEEDED. TELE SHOWING SINUS RHYTHM - SINUS TACH WITH HR 90-100'S. BP STABLE. MODERATE - LARGE LIQUID WITH GRAIN LIKE TEXTURE BOWEL MOVEMENT THIS SHIFT. SEE I/O DOCUMENTATION. NG TUBE CONTINUES TO LIS WITH 400 OUTPUT THIS SHIFT. 700 URINE OUTPUT VIA ALVAREZ CATH. TEMP MAX THIS SHIFT 101.7, TRENDING DOWN. WILL CONTINUE TO MONITOR.
[2021-11-26 03:47] LABS: Hematocrit 41.3 % (37.0-53.0); Mean Corpuscular HGB 28.6 pg (26.0-34.0); Mean Corpuscular HGB Conc 31.5 g/dL (31.5-36.5); Mean Corpuscular Volume 91 fL (80-100); Mean Platelet Volume 11.6 fL (9.1-12.4); Platelet Count 225 K/mm3 (150-400); RDW Coefficient Variation 14.6 % (11.7-14.2); RDW Standard Deviation 48.4 fL (35.1-46.3); Red Blood Cell Count 4.55 M/mm3 (4.30-5.90); White Blood Cell Count 21.61 K/mm3 (4.00-11.30)
[2021-11-26 04:04] LABS: Bun/Creatinine Ratio 62.6 (12.0-20.0); Creatinine, Blood 1.47 mg/dL (0.60-1.20); Magnesium, Blood 2.8 mg/dL (1.6-2.4); Phosphorus, Blood 3.6 mg/dL (2.5-4.9); Potassium, Blood 2.8 mmol/L (3.5-5.5)
--- NOTE | 2021-11-26 05:33 | NUR ---
SHIFT SUMMARY PT ABLE TO SAY "YES" SOFTLY THIS SHIFT ONCE. VSS, SP02>90% ON 3L NC IN MOUTH. WEAK COUGH. ORAL CARE DONE Q4H. TELEMETRY SHOWS NSR/SINUS TACH, HR MOSTLY 90'S T/O SHIFT. PT HAD ONE SMALL, SMEAR GRAINY BM THIS SHIFT. ATTENDS C/D IN PLACE. ALVAREZ CATHETER DRAINING TO GRAVITY, APPROX 200 OUT THIS SHIFT. NG TUBE TO LIS CONTINUES TO OUTPUT GREEN LIQUID. PT HAS RECTAL TEMP PROBE, GOT UP TO 100.9 THIS SHIFT, ADMINISTERED TYLENOL X1. REPOSITIONED Q2H. CALL LIGHT IN REACH.
--- NOTE | 2021-11-26 17:26 | NUR ---
SHIFT SUMMARY PT HAS BEEN RESTING THROUGHOUT THE DAY. PT SLEPT FOR SEVERAL HOURS DURING THE DAY AND WAS RESTING WITH EYES CLOSED AT OTHER TIMES. PT WAS DIFFICULT TO ROUSE BY VOICE OR GENTLE TOUCH AT ALL TIMES. PT VERBALIZED A QUIET "YES" TO A FEW QUESTIONS THROUGHOUT THE DAY, HOWEVER NO OTHER VERBALIZATIONS WERE HEARD. PT WAS NOT ABLE TO TRACK OBJECTS WITH EYES IN ANY CAPACITY AND PUPIL RESPONSE WAS EQUAL AND SLUGGISH. FAMILY CAME TO SEE PT TODAY, THIS RN UPDATED THE FAMILY ON CURRENT CONDITION AND PLAN OF CARE. SBP HAS RANGED 115-144, TEMPERATURE MAX 100.2 F, RR 22-27.
[2021-11-27 04:20] LABS: Hematocrit 41.5 % (37.0-53.0); Mean Corpuscular HGB 28.6 pg (26.0-34.0); Mean Corpuscular HGB Conc 31.3 g/dL (31.5-36.5); Mean Corpuscular Volume 91 fL (80-100); Mean Platelet Volume 12.2 fL (9.1-12.4); Platelet Count 181 K/mm3 (150-400); RDW Coefficient Variation 14.3 % (11.7-14.2); RDW Standard Deviation 47.8 fL (35.1-46.3); Red Blood Cell Count 4.54 M/mm3 (4.30-5.90); White Blood Cell Count 17.88 K/mm3 (4.00-11.30)
[2021-11-27 04:45] LABS: Albumin, Blood 2.2 g/dL (3.4-5.0); Anion Gap 9 mmol/L (6-16); Blood Urea Nitrogen 89 mg/dL (8-24); Bun/Creatinine Ratio 76.1 (12.0-20.0); CO2, Blood 24 mmol/L (21-32); Chloride, Blood 117 mmol/L (98-108); Creatinine, Blood 1.17 mg/dL (0.60-1.20); Glomerular Filtration Rate 69 (60-); Glucose, Blood 214 mg/dL (70-99); Magnesium, Blood 2.8 mg/dL (1.6-2.4); Phosphorus, Blood 2.4 mg/dL (2.5-4.9); Potassium, Blood 2.8 mmol/L (3.5-5.5); Sodium, Blood 150 mmol/L (136-145)
--- NOTE | 2021-11-27 05:15 | NUR ---
PLASTIC OUTFITTER SUMMARY ADMITTED FOR SBO, AMS. PT IS A DNR. HE REQUIRES TOTAL CARE. THE PATIENT HAS AN NG TUBE IN PLACE ON LOW INTERMITTENT SUCTION. PT RUNNING PPN AT 95 ML/HR. Q6 CBG WAS AROUND 200. PT IS NPO. HE HAS LIMITED VERBAL INTERACTION, RESPONDING INTERMITTENTLY WITH YES AND NO. FEVER HAS IMPROVED PER RECTAL TEMP. BMS ARE WATERY AND VERY FREQUENT. HE RESPONDS YES WHEN ASKED IF HE HAS PAIN BUT THIS IMPROVES WITH REST. PT HAS A WOUND TO THE BUTTOCKS, STAGE 2, CURRENTLY WITH MEPILEX IN PLACE.
[2021-11-27 09:53] LABS: Vancomycin, Trough 13.8 ug/mL (5.0-10.0)
--- NOTE | 2021-11-27 18:45 | NUR ---
SHIFT SUMMARY PT HAS BEEN RESTING IN BED, PT HAS BEEN REPOSITIONED A MINIMUM OF EVERY TWO HOURS. PT HAS BEEN MINIMALLY RESPONSIVE. PT HAS SAID "YES" A HANDFUL OF TIMES TO QUESTIONS ASKED BY THIS RN OR THE PROVIDER. TEMPERATURE HAS MAINTAINED <100.0 F FOR THE DURATION. PT HAS HAD SEVERAL LIQUID STOOLS THAT HAVE BECOME PROGRESSIVELY MORE MUCOUSY. NG TUBE REMAINED CONNECTED TO LOW INTERMITTENT SUCTION. PPN WAS PAUSED TO INFUSE OTHER FLUIDS THAT WERE ORDERED. VITAL SIGNS STABLE, NO ACUTE CHANGES IN PT CONDITION NOTED.
[2021-11-28 04:14] LABS: Hematocrit 38.8 % (37.0-53.0); Mean Corpuscular HGB 28.1 pg (26.0-34.0); Mean Corpuscular HGB Conc 30.9 g/dL (31.5-36.5); Mean Corpuscular Volume 91 fL (80-100); Mean Platelet Volume 12.2 fL (9.1-12.4); Platelet Count 172 K/mm3 (150-400); RDW Coefficient Variation 14.6 % (11.7-14.2); RDW Standard Deviation 48.1 fL (35.1-46.3); Red Blood Cell Count 4.27 M/mm3 (4.30-5.90); White Blood Cell Count 16.94 K/mm3 (4.00-11.30)
[2021-11-28 04:37] LABS: Anion Gap 7 mmol/L (6-16); Blood Urea Nitrogen 92 mg/dL (8-24); CO2, Blood 24 mmol/L (21-32); Calcium, Blood 8.1 mg/dL (8.5-10.1); Chloride, Blood 114 mmol/L (98-108); Creatinine, Blood 1.46 mg/dL (0.60-1.20); Glomerular Filtration Rate 53 (60-); Glucose, Blood 226 mg/dL (70-99); Phosphorus, Blood 4.8 mg/dL (2.5-4.9); Potassium, Blood 2.8 mmol/L (3.5-5.5); Sodium, Blood 145 mmol/L (136-145)
--- NOTE | 2021-11-28 06:52 | NUR ---
NO ACUTE EVENTS OVERNIGHT LAST NIGHT. NG TUBE REMAINS IN PLACE AT LOW INTERMITTENT SUCTION. OUTPUT IS CHRISTY/GREEN IN COLOR AND TOTAL OUTPUT WAS 130 mLs FOR THIS SHIFT. ORAL CARE PERFORMED Q4 HOURS. MR. DAWN DENIED ANY ABDOMINAL PAIN THROUGHOUT THE SHIFT. ABDOMEN IS A BIT FIRM, NO SIGNIFICANT DISTENTION OBSERVED. 2 LARGE DARK GREEN LIQUID STOOLS OVERNIGHT. ELIZ CARE PERFORMED AND CALAZYME APPLIED TO SCROTUM, ELIZ AND BUTTOCKS.
--- NOTE | 2021-11-28 09:45 | NUR ---
UPDATE NASOGASTRIC TUBE REMOVED FROM SUCTION AND CLAMPED PER VERBAL MD ORDER GIVEN DURING PROVIDER/NURSE PATIENT ROUNDS.
--- NOTE | 2021-11-28 17:47 | NUR ---
SHIFT SUMMARY PT HAS BEEN RESTING IN BED, THEY HAVE SLEPT OFF AND ON THROUGHOUT THE DAY. PT HAS BEEN REPOSITIONED A MINIMUM OF EVERY TWO HOURS. PT HAS HAD MULTIPLE MUCOUSY, LIQUID STOOLS. THERE IS SOME EXCORIATION TO THE INSIDE OF PT'S THIGHS AND THE UNDERSIDE OF THEIR SCROTUM, TOPICAL CALAZIME HAS BEEN PLACED AT EACH ATTENDS CHANGE. URINE WAS NOTED TO BE LEAKING AROUND INDWELLING CATHETER AT URINARY MEATUS. THIS RN ATTEMPTED TO FLUSH CATHETER WITH STERILE WATER BUT WAS UNSUCCESSFUL. INDWELLING URINARY CATHETER WAS REPLACED AND RETURNED MORE THAN 1000ML OF URINE. PT TOLERATED THIS WELL. PT VOICED A RELIEF OF ABDOMINAL DISCOMFORT SHORTLY AFTER. PT HAS BEEN MORE ALERT AND VOCAL TODAY WHEN COMPARED WITH YESTERDAY. ALL VITAL SIGNS HAVE REMAINED STABLE AND WITHIN NORMAL LIMITS.
--- NOTE | 2021-11-29 07:18 | NUR ---
NO ACUTE EVENTS OVERNIGHT. MR. DAWN DENIES ABDOMINAL PAIN AND NAUSEA. HE HAS BEEN MORE TALKATIVE OVERNIGHT, AND HIS SENSE OF HUMOR IS SHOWING THROUGH. HE RESPONDS APPROPRIATELY TO QUESTIONS AND MAKES REQUESTS REGARDING HIS CARE. NG TUBE REMAINS CLAMPED. NO ABDOMINAL DISTENTION OR PAIN. ORAL CARE PERFORMED EVERY 4 HOURS. PT CONTINUES TO BE INCONTINENT OF LOOSE DARK GREEN STOOLS. HE DOES HAVE SOME INCONTINENCE RELATED SKIN BREAKDOWN TO THE POSTERIOR SCROTUM, PERINEAL AREA AND INTERGLUTEAL CLEFT. THERE ARE 2 OPEN AREAS AT THE INTERGLUTEAL CLEFT AND PICURES WERE TAKEN FOR THE CHART. ELIZ CARE INCLUDED APPLICATION OF CALAZIME BARRIER CREAM WITH EACH OCCURRENCE.
--- NOTE | 2021-11-29 09:42 | NUR ---
AM NOTE: PATIENT OPENING EYES THIS AM SPONT. ANSWERING YES AND NO QUESTIONS. STATES HIS DAUGHTER VISITED HIM YESTERDAY. ANSWERING ALL QUESTIONS. PERRLA. SHANON NUMBNESS/TINGLING. WHEELCHAIR BOUND AT BASELINE. CONTRACTED UPPER EXTREMITIES. Q2 TURNING AND NEEDED. ON ROOM AIR SATING ABOVE 94%. UPPER LOBES SOUDNING CLEAR AND DIM IN BASES. OCCASIONAL NONPRODUCTIVE COUGH. PATIENT ABLE TO CLEAR SMALL AMOUNTS OF SPUTUM WHEN ASKED TO COUGH WITH ORAL CARE. ORAL CARE Q4 AND NEEDED. TELE SHOWING SINUS RHYTHM WITH HR 70-80'S. BP STABLE. DENIES PAIN. NO SIGNS OF EDEMA. DENIES ABDOMINAL PAIN/NAUSEA. MODERATE ABDOMIANL DISTENTION WITH SOME FIRMENSS. NG TUBE REMAINS CLAMPED, MORN MEDS GIVEN VIA TUBE. PPN INFUSING TO LEFT FA. ANTIBIOTICS INFUSING THIS AM TO RIGHT FA. ONE MODERATE SIZED BM THIS AM, GREEN IN COLOR AND MUCOUSY IN TEXTURE. ALVAREZ CATH IN PLACE DRAINING TO GRAVITY. CATH CARE COMPLETED THIS AM. SKIN TEAR TO LEFT ELBOW, MEPILEX IN PLACE. EXCORIATION/REDNESS TO COCCYX, CREAM APPLIED AND MEPILEX IN PLACE. CALL LIGHT IN REACH. DENIES NEEDS AT THIS TIME, WILL CONTINUE TO MONITOR.
[2021-11-29 09:49] LABS: Vancomycin, Trough 19.9 ug/mL (5.0-10.0)
[2021-11-29 09:56] LABS: Albumin, Blood 1.9 g/dL (3.4-5.0); Anion Gap 10 mmol/L (6-16); Blood Urea Nitrogen 73 mg/dL (8-24); Bun/Creatinine Ratio 56.6 (12.0-20.0); CO2, Blood 22 mmol/L (21-32); Calcium, Blood 8.5 mg/dL (8.5-10.1); Chloride, Blood 115 mmol/L (98-108); Creatinine, Blood 1.29 mg/dL (0.60-1.20); Glomerular Filtration Rate 62 (60-); Glucose, Blood 180 mg/dL (70-99); Phosphorus, Blood 3.4 mg/dL (2.5-4.9); Sodium, Blood 147 mmol/L (136-145)
--- NOTE | 2021-11-29 18:09 | NUR ---
SHIFT SUMMARY: NO ACUTE CHANGES THROUGHOUT SHIFT. PATIENT ANSWERING YES AND NO QUESTIONS. OCCASIONALLY TALKS IN SHORT PHRASES TALKING ABOUT FAMILY, TV SHOWS, WANTING WATER. REMAINS ON ROOM AIR SATING ABOVE 94%. OCCASIONAL WEAK COUGH. Q4 ORAL CARE AND NEEDED. SUCTION AT BEDSIDE. NO CHANGES TO TELE. REMAINS SINUS RHYTHM WITH HR 70-80'S. BP STABLE. DENIES PAIN. MULTIPLE GREEN/MUCOUSY BOWEL MOVEMENTS THIS SHIFT. ABDOMEN MODERATE DISTENTION AND SOFT. NG TUBE REMAINS IN PLACE CLAMPED. NO UPDATES FROM SURG YET. ALVAREZ CATH IN PLACE DRAINING TO GRAVITY. PPN CONTINUES TO INFUSE. ANTIBIOITCS AND KCL INFUSED THROUGHOUT SHIFT. Q2 TURNING AND NEEDED. SEE CHART PICTURE FOR UPDATE ON COCCYX. BARRIER CREAM AND NEW MEPILEX APPLIED WITH CHANGES. PATIENT DENIES OVERALL PAIN. Q6 BLOOD SUGARS. DENIES NEEDS AT THIS TIME. WILL CONTINUE TO MONITOR AND REPORT OFF. STATUS UPDATE PROVIDED TO DAUGHTER RAYMOND WITH PATIENT PERMISSION. RAYMOND STATED SHE WOULD UPDATE SISTER GITA (POA).
[2021-11-30 10:17] LABS: Magnesium, Blood 2.4 mg/dL (1.6-2.4)
[2021-11-30 10:18] LABS: Bun/Creatinine Ratio 53.7 (12.0-20.0); Calcium, Blood 8.5 mg/dL (8.5-10.1); Creatinine, Blood 0.95 mg/dL (0.60-1.20); Potassium, Blood 3.4 mmol/L (3.5-5.5)
--- NOTE | 2021-11-30 14:38 | NUR ---
UPDATE NASOGASTRIC TUBE REMOVED. PT TOLERATED WELL. TUBE INTACT.
--- NOTE | 2021-11-30 17:05 | NUR ---
SHIFT SUMMARY PT HAS BEEN RESTING IN BED THROUGHOUT THE DAY. PT SPENT A MAJORITY OF THE DAY AWAKE. PT MAINTAINED VERBAL INITERACTION THROUGHOUT THE DAY. PT DID NOT ENGAGE CONVERSATION BUT WOULD REPLY TO QUESTIONS OR OCCASIONAL COMMENTS WITH SHORT RESPONSES. PT FELL ASLEEP IN THE AFTERNOON AND WAS UNABLE TO HAVE A SWALLOW SCREENING COMPLETED, ADVISORY SOFTWARE ENGINEER WILL RE-ATTEMPT IN THE AM. ALL VITAL SIGNS STABLE, NO ACUTE CHANGES TO PT CONDITION.
[2021-12-01 05:25] LABS: Hematocrit 35.4 % (37.0-53.0); Hemoglobin 11.2 g/dL (13.5-17.5); Mean Corpuscular HGB 28.5 pg (26.0-34.0); Mean Corpuscular HGB Conc 31.6 g/dL (31.5-36.5); Mean Corpuscular Volume 90 fL (80-100); Mean Platelet Volume 12.4 fL (9.1-12.4); Platelet Count 181 K/mm3 (150-400); RDW Coefficient Variation 14.6 % (11.7-14.2); RDW Standard Deviation 47.8 fL (35.1-46.3); Red Blood Cell Count 3.93 M/mm3 (4.30-5.90); White Blood Cell Count 11.27 K/mm3 (4.00-11.30)
[2021-12-01 05:44] LABS: Albumin, Blood 1.7 g/dL (3.4-5.0); Anion Gap 7 mmol/L (6-16); Blood Urea Nitrogen 40 mg/dL (8-24); Bun/Creatinine Ratio 48.1 (12.0-20.0); CO2, Blood 20 mmol/L (21-32); Calcium, Blood 8.4 mg/dL (8.5-10.1); Chloride, Blood 116 mmol/L (98-108); Creatinine, Blood 0.83 mg/dL (0.60-1.20); Glomerular Filtration Rate 97 (60-); Glucose, Blood 163 mg/dL (70-99); Phosphorus, Blood 2.9 mg/dL (2.5-4.9); Potassium, Blood 3.6 mmol/L (3.5-5.5); Sodium, Blood 143 mmol/L (136-145)
--- NOTE | 2021-12-01 06:28 | NUR ---
SHIFT SUMMARY PT ALERT. DIFFICULT TO ASSESS ORIENTATION DUE TO COMMUNICATION. CAN RESPOND TO YES/NO QUESTIONS AND STRING TOGETHER A FEW WORDS. BP STABLE. HR SR 60-70'S. AFEBRILE. ON RA SATS OVER 96%. PPN RUNNING @ 95ML/HR. PT REMAINS NPO TILL SWALLOW EVAL, Q6 CBG CHECKS. D5W BAG INFUSED. Q2 TURNS. PT HAS FREQUENT LOOSE GREEN BM'S. CHANGE MEPILEX ON SACRUM EACH Q2 TURN. ASLEEP MOST OF NIGHT. IN BED SLEEPING WITH CALL ALARM AT SIDE, WILL CONTINUE TO MONITOR UNTIL REPORT GIVEN TO DAYSHIFT RN
--- NOTE | 2021-12-01 15:12 | NUR ---
SHIFT SUMMARY PT HAS SLEPT OFF AND ON THROUGHOUT THE DAY. SPEECH LANGUAGE PATHOLOGIST PERFORMED A BEDSIDE SWALLOW EVALUATION AND INPUT NEW ORDERS. PT TOLERATED THEIR CLEAR LIQUID LUNCH TRAY WELL. PT DID HAVE MINOR DIFFICULTY WITH WATER IN QUANTITIES GREATER THAN A TEASPOON AT THE END OF THE MEAL. PT CONVERSED WITH THIS RN AND THE PROVIDER VERY BRIEFLY, ONLY A FEW WORDS AT A TIME. PT NEEDED REPETITION OF COMMANDS DURING SWALLOW EVALUATION BUT WAS ABLE TO FOLLOW DIRECTION. VITAL SIGNS STABLE, NO ACUTE CHANGE IN CONDITION.
[2021-12-02 05:12] LABS: Albumin, Blood 1.7 g/dL (3.4-5.0); Anion Gap 7 mmol/L (6-16); Blood Urea Nitrogen 35 mg/dL (8-24); Bun/Creatinine Ratio 42.1 (12.0-20.0); CO2, Blood 20 mmol/L (21-32); Calcium, Blood 8.1 mg/dL (8.5-10.1); Chloride, Blood 112 mmol/L (98-108); Creatinine, Blood 0.83 mg/dL (0.60-1.20); Glomerular Filtration Rate 97 (60-); Glucose, Blood 124 mg/dL (70-99); Phosphorus, Blood 3.3 mg/dL (2.5-4.9); Potassium, Blood 4.1 mmol/L (3.5-5.5); Sodium, Blood 139 mmol/L (136-145); Triglycerides 104 mg/dL (30-160)
--- NOTE | 2021-12-02 05:35 | NUR ---
SHIFT SUMMARY PT ALERT. DIFFICULT TO ASSESS ORIENTATION. CAN RESPOND TO YES/NO QUESTIONS AND STRING TOGETHER A FEW WORDS AT A TIME. SOMETIME WILL GAZE OFF TO SIDE WHEN SPOKEN TOO. PT PASSED SWALLOW STUDY DURING THE DAY, ABLE TO TOLERATE SIPS OF WATER AND MEDS WITH PUDDING. PPN RUNNING AT 95ML/HR. Q2 TURNS. REPLACING MEPILEX EVER TURN, SKIN BREAKDOWN ON SACRUM. FREQUENT LOOSE GREEN BM'S. PT STATES HE IS COMFORTABLE. IN BED SLEEPING WITH CALL ALARM AT SIDE, WILL CONTINUE TO MONITOR UNTIL REPORT GIVEN TO DAYSHIFT RN
--- NOTE | 2021-12-02 17:37 | NUR ---
SHIFT SUMMARY NO ACUTE EVENTS THIS SHIFT, VSS. PT RESPONDS TO VERBAL STIMULUS, SLOW TO RESPOND, ONLY ANSWERS YES OR NO QUESTIONS. REPOSITIONED T/O SHIFT BY STAFF, ASSISTED WITH MEALS AND MEDS CRUSHED IN PUDDING. PT HAD LOOSE GREENISH STOOLS THROUGHOUT SHIFT, DISCUSSED WITH DR. YOUNGER AND BANANA FLAKES GIVEN PER EMAR. PPN RUNNING PER EMAR. MEPILEX ON COCCYX REPLACED AND BARRIER CREAM APPLIED. NO SIGNS OF ACUTE DISTRESS, WCTM.
[2021-12-03 04:57] LABS: Albumin, Blood 1.7 g/dL (3.4-5.0); Anion Gap 8 mmol/L (6-16); Blood Urea Nitrogen 36 mg/dL (8-24); Bun/Creatinine Ratio 39.2 (12.0-20.0); CO2, Blood 18 mmol/L (21-32); Calcium, Blood 8.3 mg/dL (8.5-10.1); Chloride, Blood 111 mmol/L (98-108); Creatinine, Blood 0.92 mg/dL (0.60-1.20); Glomerular Filtration Rate 92 (60-); Glucose, Blood 125 mg/dL (70-99); Phosphorus, Blood 3.5 mg/dL (2.5-4.9); Potassium, Blood 4.5 mmol/L (3.5-5.5); Sodium, Blood 137 mmol/L (136-145)
--- NOTE | 2021-12-03 05:24 | NUR ---
SHIFT SUMMARY NO ACUTE CHANGES THIS SHIFT. VSS. REMAINS IN SR. ON RA. MULTIPLE BM'S THIS SHIFT. ALVAREZ DRAINING. WOUND CARE COMPLETED TO SACRUM. PPN INFUSING PER AUG. PT BEING TURNED BY STAFF T/O SHIFT. OTHERWISE, PT HAS BEEN RESTING T/O SHIFT.
--- NOTE | 2021-12-03 09:59 | NUR ---
CARE ASSUMPTION THIS RN ASSUMED CARE FROM [facility] FLOWERS AT 0700. VSS. TELE SR 70-80S. PATIENT IS ALERT AND ORIENTED X4. PERRLA. NEURO IS AT BASELINE. PATIENT IS SLOW TO RESPOND, BUT ANSWERS QUESTIONS APPRORPIATELY AND HOLDS CONVERSATION. PATIENT REPORTS NO PAIN. PATIENT REPORTS NO CHEST PAIN/PRESSURE. STRONG RADIAL PULSES, FAINT PEDIS PULSES. NO EDEMA NOTED. CAP REFILL <3SECONDS. PATIENT REPORTS NO SHORTNESS OF BREATH. CLEAR LUNG SOUNDS. PATIENT ABD IS NONTENDER HYPOACTIVE. PATIENT HAS INCONTINENT BOWEL MOVEMENTS. PATIENT HAS A CHRONIC ALVAREZ CATH, ALVAREZ CATH IN PLACE DRAINING WITH GRAVITY ROMMEL COLORATION. PATIENT HAS A SKIN TEAR TO LEFT ELBOW AND BANDAGE IN PLACE AND PATIENT HAS A PRESSURE SORE TO COCCYX MEPILEX IN PLACE. PATIENT REPOSITIONED EVERY TWO HOURS. SEE SHIFT ASSESSMENT FOR FURTHER DETAILS. PATIENT DID ARM RANGE OF MOTION EXERCISES, BUT REFUSED LEG RANGE OF MOTION. PATIENT ATE PUDDING THIS AM, APPLESAUCE, TWO THICKEND LEMON JACOB, 1/4 OF ORGANGE JUICE THICKEND, AND ABOUT 1/3 OF PUREE BREAKFAST, AND TWO BITES OF CREAM OF WHEAT. ORAL CARE DONE THIS AM. PATIENT SITTING AT 90 DEGREES POST ORAL INTAKE. PATIENT HAS PPN INFUSING AT RATE 95 PER EMAR. PATIENT TAKES MEDICATIONS CRUSHED WITH VANILLA PUDDING OR APPLESAUCE. CALL LIGHT WITHIN REACH AND BED IN LOWEST POSITION. PLAN OF CARE UP TO DATE AND PATIENT VERABLIZED UNDERSTANDING. THIS RN WILL DO HOURLY ROUNDING ON PATIENT AND PROVIDE CARE.
--- NOTE | 2021-12-03 16:53 | NUR ---
SHIFT SUMMARY PATIENT NEURO REMAINS INTACT. PATIENT WORKED WITH OCCUPATIONAL THERAPY TODAY. SPEECH SAW PATIENT TODAY, AND DIET AND LIQUID AND MEDICATION ADMINISTRATION ARE TO REMAIN THE SAME. PUREE DIET AND NECTAR THICK LIQUID, AND MEDICATIONS WITH APPLESAUCE OR VANILLA PUDDING CRUSHED. THIS RN UPDATED PATIENT DAUGHTER RAYMOND TODAY. PATIENT DAUGHTER AWARE OF PLAN. PATIENT HAS BEEN REPOSITIONED EVERY TWO HOURS AND HAS HAD RANGE OF MOTION DONE THRHOUGHT THE DAY. ORAL CARE PERFORMED. SEE PATIENT PERSONAL CARE FOR I&OS, REPOSITION, AND ADLS DONE DURING THIS SHIFT. ALVAREZ CATH DRAINING WITH GRAVITY, SEDIMENT AND ROMMEL COLORATION. PATIENT HAD SMALL SMEAR BOWEL MOVEMENT THIS SHIFT. PATIENT COVID SWAB FOR POSSIBLE DISCHARGE TO SNF TOMORROW.RESULTS PENDING. PATIENT IS AWARE OF THE PLAN OF CARE. CALL LIGHT WITHIN REACH AND BED IN LOWEST POSITON. NO ACUTE CHANGES THIS SHIFT. WILL CONTINUE TO MONITOR AND PROVIDE CARE UNTIL HAND OFF WITH NEXT SHIFT.
[2021-12-03 16:59] LABS: SARS-Cov-2 (COVID-19) PCR, MMC NEGATIVE (NEGATIVE)
--- NOTE | 2021-12-04 05:44 | NUR ---
SHIFT SUMMARY A/O X3- NO ACUTE CHANGES OVER NIGHT. PT HAD MULTIPLE BOWEL MOVEMENTS AND WAS CHANGED PRN, MEPILEX ON COCCYX WAS CHANGE W/ EACH ATTENDS CHANGE, WOUND KEPT CLEAN AND DRY. PT REPORTS PAIN IN COCCYX, FLOATED ON PILLOWS AND PT STATED HE WAS MORE COMFORTABLE. ALVAREZ DRAINING ROMMEL URINE TO GRAVITY, ENCOURAGED FLUID INTAKE. CBG WNL THIS EVENING. CALLED REPORT TO RECEIVING RN AND MOVED PT TO MEDICAL FLOOR THIS AM. BELONGINGS GATHERED AND MOVED PT AT APPROX 0540.
[2021-12-04 08:48] LABS: Albumin, Blood 2.1 g/dL (3.4-5.0); Anion Gap 8 mmol/L (6-16); Blood Urea Nitrogen 28 mg/dL (8-24); Bun/Creatinine Ratio 32.5 (12.0-20.0); CO2, Blood 19 mmol/L (21-32); Calcium, Blood 8.7 mg/dL (8.5-10.1); Chloride, Blood 110 mmol/L (98-108); Creatinine, Blood 0.86 mg/dL (0.60-1.20); Glomerular Filtration Rate 96 (60-); Glucose, Blood 92 mg/dL (70-99); Phosphorus, Blood 4.1 mg/dL (2.5-4.9); Potassium, Blood 4.2 mmol/L (3.5-5.5); Sodium, Blood 137 mmol/L (136-145)
[2021-12-04] MEDS ORDERED: BANATROL PLUS1 EAC1 PO (10:12)
[2021-12-04] MEDS ORDERED: VISBIOME 112.51 EACH PO (10:13)
[2021-12-04] MEDS ORDERED: LOPE2C PO (10:14)
--- NOTE | 2021-12-04 11:23 | NUR ---
DISCHARGE SUMMARY IV REMOVED PRIOR TO DISCHARGE. PT TRANSPORTED VIA WHEELCHAIR ALONG WITH PERSONAL BELONGINGS TO TRANSPORT VAN. REPORT CALLED TO RECEIVING NURSE WITH SERGE RAMIREZ. PT HAS BEEN TRANSPORTED FOR PLACEMENT WITH [facility].
== END 2021-12-04 11:03 | DRG 871 ==
LOC: ER 14:51 → PCU 17:41 → MEDS 17:41 → ICUW 17:41 → PCU 11-20 16:00 → MEDS 12-04 05:34
PROVIDERS: Internal Medicine; Physician Assistant; ADMIT Internal Medicine
DX: A41.9 Sepsis, unspecified organism (principal); J69.0 Pneumonitis due to inhalation of food and vomit; J18.9 Pneumonia, unspecified organism; G92.8 Other toxic encephalopathy; J96.01 Acute respiratory failure with hypoxia; T83.511A Infection and inflammatory reaction due to indwelling urethral catheter, initial encounter; E87.2 Acidosis; K56.51 Intestinal adhesions [bands], with partial obstruction; E87.0 Hyperosmolality and hypernatremia; T17.808A Unspecified foreign body in other parts of respiratory tract causing other injury, initial encounter; K52.1 Toxic gastroenteritis and colitis; Z66 Do not resuscitate; Z20.822 Contact with and (suspected) exposure to COVID-19; R65.20 Severe sepsis without septic shock; I10 Essential (primary) hypertension; B19.20 Unspecified viral hepatitis C without hepatic coma; R13.12 Dysphagia, oropharyngeal phase; E11.65 Type 2 diabetes mellitus with hyperglycemia; E83.39 Other disorders of phosphorus metabolism; T36.95XA Adverse effect of unspecified systemic antibiotic, initial encounter; N40.0 Benign prostatic hyperplasia without lower urinary tract symptoms; E87.6 Hypokalemia; F10.20 Alcohol dependence, uncomplicated; K21.9 Gastro-esophageal reflux disease without esophagitis; R29.6 Repeated falls; Z99.3 Dependence on wheelchair; Z90.49 Acquired absence of other specified parts of digestive tract; Z87.891 Personal history of nicotine dependence; Z79.84 Long term (current) use of oral hypoglycemic drugs; Z79.899 Other long term (current) drug therapy; Y84.6 Urinary catheterization as the cause of abnormal reaction of the patient, or of later complication, without mention of misadventure at the time of the procedure
CPT/HCPCS: 36415; 51702; 70450; 71045; 74176; 74177; 80048; 80053; 80069; 80202; 81001; 82803; 82947; 83605; 83735; 83880; 84100; 84145; 84478; 85025; 85027; 87040; 87086; 92526; 92610; 93005; 93010; 94760; 94762; 96365-59; 96366-59; 97110; 97162; 97166; 97530; 97535; 99285-25; A9270; J0610; J0692; J1650; J2543; J2765; J3370; J3411; J3475; J3480; J7030; J7040; J7060; J7070; J7131; Q9967; U0004

== ENCOUNTER 2021-12-23 01:36 | Day surgery (SDC) | payer MEDICARE, OTHER ==
[~2021-12-23 01:36] MED LIST changes: +ASPERFLEX1 EACH TOP; +BANATROL PLUS1 EAC1 PO; +LIDO700A20 TOP; +LOPE2C PO; +METF500 PO; +TRAZ50 PO; +VISBIOME 112.51 EACH PO
== END 2021-12-24 23:37 | disposition home or self-care (01) ==
LOC: WOUND 01:36
DX: L89.150 Pressure ulcer of sacral region, unstageable (principal); E11.59 Type 2 diabetes mellitus with other circulatory complications; F17.200 Nicotine dependence, unspecified, uncomplicated; I10 Essential (primary) hypertension; B18.2 Chronic viral hepatitis C; Z87.891 Personal history of nicotine dependence; E11.9 Type 2 diabetes mellitus without complications
CPT/HCPCS: A9270; G0463

== ENCOUNTER 2021-12-31 01:16 | Day surgery (SDC) | payer MEDICARE, OTHER | END 2021-12-31 23:04 | disposition home or self-care (01) | LOC: WOUND 01:16 | DX: L89.154 Pressure ulcer of sacral region, stage 4 (principal); E11.59 Type 2 diabetes mellitus with other circulatory complications; F17.200 Nicotine dependence, unspecified, uncomplicated; I10 Essential (primary) hypertension; B18.2 Chronic viral hepatitis C | CPT/HCPCS: A9270 ==

== ENCOUNTER 2022-01-07 02:23 | Day surgery (SDC) | payer MEDICARE, OTHER | END 2022-01-07 23:13 | disposition home or self-care (01) | LOC: WOUND 02:23 | DX: L89.154 Pressure ulcer of sacral region, stage 4 (principal); E11.59 Type 2 diabetes mellitus with other circulatory complications; F17.200 Nicotine dependence, unspecified, uncomplicated; I10 Essential (primary) hypertension; B18.2 Chronic viral hepatitis C | CPT/HCPCS: A9270 ==